=== PATIENT | female | born 1970 | race Caucasian/White ===

== ENCOUNTER 2017-06-05 08:29 | Day surgery (SDC) | payer BC ==
[2017-06-05] MEDS ORDERED: NA CHLORIDE 0.9% 1,000 ML ONE (08:56)
[2017-06-05 09:19] VITALS: BMI 25.8
[2017-06-05] MEDS ORDERED: FLUMAZENIL 0.1 MG/ML (5 mL VIAL) IV ONE (09:42)
[2017-06-05] MEDS ORDERED: NALOXONE 0.4 MG/ML VIAL ONE (09:42)
[2017-06-05] MEDS ORDERED: FENTANYL CITR 100 MCG/2 ML ONE ×2 (09:42→10:53)
[2017-06-05] MEDS ORDERED: MIDAZOLAM HCL 2 MG/2 ML INJ ONE (09:42)
[2017-06-05] MEDS ORDERED: PROMETHAZINE 25 MG TABLET ONE (10:47)
[2017-06-05] MEDS ORDERED: PROMETHAZINE 25 MG/ML VIAL ONE (10:53)
--- NOTE | 2017-06-05 11:31 | RAD REPORT ---
EXAM DESCRIPTION: US - Liver Biopsy Proceduree - 06/05/2017 10:35 am CLINICAL HISTORY: Elevated liver function tests. COMPARISON: None. FINDINGS: Preoperative diagnosis: Elevated liver function test.. Post operative diagnosis: Same. Conscious Sedation: 45 minutes of IV conscious sedation was utilized with fentanyl and midazolam. Fluoroscopy time: None Contrast used: None Estimated blood loss: Minimal Specimens:3 x 18 gauge core biopsy specimens The right upper quadrant was prepped and draped in the usual sterile fashion. 1% lidocaine was infilt rated into the subcutaneous tissues for local anesthesia. Real time ultrasound scanning of the right lobe of the liver demonstrated fatty liver with a suitable sonographic window. Under ultrasound ric nce, using a 18-gauge, 16 cm long, 2 cm throw core biopsy gun, 3 specimens were obtained of this lesi on and sent to pathology for evaluation. There were no complications. IMPRESSION: Successful nonfocal ultrasound-guided liver biopsy. 45 minutes IV conscious sedation was utilized.
[2017-06-05 14:10] VITALS: BP 129/76; TEMP 97.9; O2SAT 97
== END 2017-06-05 14:00 | disposition home or self-care (01) ==
LOC: DS 08:29
PROVIDERS: ATTEND Internal Medicine Gastroenterology
PROC: 0FB13ZX Excision of Right Lobe Liver, Percutaneous Approach, Diagnostic (ICD-10-PCS; principal; 2017-06-05)
DX: K76.0 Fatty (change of) liver, not elsewhere classified (principal); R10.13 Epigastric pain; R93.5 Abnormal findings on diagnostic imaging of other abdominal regions, including retroperitoneum; E11.9 Type 2 diabetes mellitus without complications; R42 Dizziness and giddiness; Z12.31 Encounter for screening mammogram for malignant neoplasm of breast; Z80.0 Family history of malignant neoplasm of digestive organs
CPT/HCPCS: 47000; 76942; 88305; 88307; 88313; J2250; J2310; J2550; J3010; J7030

== ENCOUNTER 2017-12-25 09:42 | Emergency (ER) | payer BC ==
[2017-12-25 10:14] LABS: Absolute Lymphocytes (CBC) 2.9 K/uL (0.7-4.9); Absolute Monocytes 0.8 K/uL (0.1-1.3); Absolute Neutrophil 9.2 K/uL (1.8-8.0); Basophils % 0.4 % (0-1.3); Eosinophils % 0.5 % (0-4.4); Hematocrit 40.8 % (36.0-45.0); Lymphocytes % 22.1 % (15.3-44.8); MCH 30.2 pg (27.0-35.0); MCV 86.6 fL (80-100); Monocytes % 6.3 % (3.3-12.3); RBC Red Blood Cell Count 4.71 M/uL (3.86-4.86)
[2017-12-25] MEDS ORDERED: MORPHINE 4 MG/ML SYR ONE (10:16)
[2017-12-25] MEDS ORDERED: ONDANSETRON 4 MG/2 ML VIAL ONE (10:17)
[2017-12-25] MEDS ORDERED: NA CHLORIDE 0.9% 1,000 ML ONE (10:17)
[2017-12-25 10:32] LABS: Potassium 3.7 mmol/L (3.5-5.1)
[2017-12-25 10:33] LABS: Albumin 4.1 g/dL (3.4-5.0); Bilirubin Direct 0.1 mg/dL (0-0.2); Bilirubin Total 0.3 mg/dL (0.2-1.0); Protein, Total 8.2 g/dL (6.4-8.2)
[2017-12-25 10:48] LABS: Urine Blood NEGATIVE (NEG); Urine Glucose NEGATIVE (NEG); Urine Protein NEGATIVE (NEG); Urine pH 5.5 (5.0-7.0)
--- NOTE | 2017-12-25 11:06 | RAD REPORT ---
EXAM DESCRIPTION: CT - Abdomen Pelvis W Contrast - 12/25/2017 10:46 am CLINICAL HISTORY: Abdominal pain/ right lower quadrant pain COMPARISON: none. TECHNIQUE: Computed axial tomography of the abdomen pelvis was obtained. 100 cc Isovue-300 was admin istered intravenously. Oral contrast was not requested which limits evaluation of bowel. All CT scans are performed using dose optimization technique as appropriate and may include automated exposure control or mA/KV adjustment according to patient size. FINDINGS: Liver has a diminished attenuation consistent with fatty infiltration. Spleen, pancreas, adrenal and kidneys appear unremarkable. There is no evidence of diverticulitis. A small right inguinal hernia contains fat. A neurostimulator device is present within the spinal can al. IMPRESSION: Fatty infiltration liver. Small right inguinal hernia containing fat
--- NOTE | 2017-12-25 11:36 | EDPHYS ---
Physician Documentation [facility] Name: Orquidea Martin Age: 47 yrs Sex: Female : 1970 Arrival Date: 12/25/2017 Time: 09:45 Bed 13 Private MD: Javid Garcia ED Physician Eliud Arnold HPI: 12/25 09:56 This 47 yrs old Female presents to ER via Ambulatory with complaints of Back kb Pain. 09:56 The patient presents with abdominal pain right lower quadrant. Onset: The kb symptoms/episode began/occurred 1 week(s) ago. The symptoms radiate to right back. Associated signs and symptoms: none. The symptoms are described as constant. Modifying factors: The symptoms are alleviated by nothing, the symptoms are aggravated by pressure. Severity of pain: At its worst the pain was moderate in the emergency department the pain is unchanged. The patient has experienced similar episodes in the past, multiple times. The patient has been recently seen by a physician: the patient's primary care provider, with similar presenting complaints, and was sent to the [facility] Emergency Department for further evaluation. Pt reports RLQ pain that started a week ago. Now pain is worse and radiates to right lower back. Historical: - Allergies: 10:05 No Known Allergies; la1 - PMHx: 10:05 Diabetes - NIDDM; Pancreatitis; neuropathy; la1 - PSHx: 10:06 Appendectomy; Hysterectomy; la1 - Immunization history:: Adult Immunizations up to date. - Social history:: Smoking status: Patient/guardian denies using tobacco. - Ebola Screening: : No symptoms or risks identified at this time. ROS: 09:56 Constitutional: Negative for fever, chills, and weight loss, Cardiovascular: Negative kb for chest pain, palpitations, and edema, Respiratory: Negative for shortness of breath, cough, wheezing, and pleuritic chest pain, MS/Extremity: Negative for injury and deformity, Skin: Negative for injury, rash, and discoloration, Neuro: Negative for headache, weakness, numbness, tingling, and seizure. 09:56 Abdomen/GI: Positive for abdominal pain. 09:56 Back: Positive for pain at rest, of the right low back. Exam: 09:56 Constitutional: This is a well developed, well nourished patient who is awake, alert, kb and in no acute distress. Head/Face: Normocephalic, atraumatic. Chest/axilla: Normal chest wall appearance and motion. Nontender with no deformity. No lesions are appreciated. Cardiovascular: Regular rate and rhythm with a normal S1 and S2. No gallops, murmurs, or rubs. Normal PMI, no JVD. No pulse deficits. Respiratory: Lungs have equal breath sounds bilaterally, clear to auscultation and percussion. No rales, rhonchi or wheezes noted. No increased work of breathing, no retractions or nasal flaring. Back: No spinal tenderness. No costovertebral tenderness. Full range of motion. Skin: Warm, dry with normal turgor. Normal color with no rashes, no lesions, and no evidence of cellulitis. MS/ Extremity: Pulses equal, no cyanosis. Neurovascular intact. Full, normal range of motion. Neuro: Awake and alert, GCS 15, oriented to person, place, time, and situation. Cranial nerves II-XII grossly intact. Motor strength 5/5 in all extremities. Sensory grossly intact. Cerebellar exam normal. Normal gait. 09:56 Abdomen/GI: Inspection: abdomen appears normal, Palpation: soft, in all quadrants, moderate abdominal tenderness, in the right upper quadrant. Vital Signs: 09:59 BP 161 / 80; Pulse 93; Resp 17; Temp 99.1; Pulse Ox 97% on R/A; mh5 10:04 BP 158 / 84; Pulse 94; Resp 16; Temp 99.4(O); Pulse Ox 100% on R/A; la1 11:44 BP 146 / 74; Pulse 84; Resp 16; Temp 97.1; Pulse Ox 98% on R/A; la1 MDM: 09:50 Patient medically screened. kb 10:04 Data reviewed: vital signs, nurses notes. Data interpreted: Pulse oximetry: on room air kb is 100 %. Interpretation: normal. 11:32 Counseling: I had a detailed discussion with the patient and/or guardian regarding: the kb historical points, exam findings, and any diagnostic results supporting the discharge/admit diagnosis, lab results, radiology results, the need for outpatient follow up, a family practitioner, to return to the emergency department if symptoms worsen or persist or if there are any questions or concerns that arise at home. 12/25 09:55 Order name: Basic Metabolic Panel; Complete Time: 10:40 kb 12/25 09:55 Order name: CBC with Diff; Complete Time: 10:17 kb 12/25 09:55 Order name: Hepatic Function; Complete Time: 10:40 kb 12/25 09:55 Order name: Lipase; Complete Time: 10:40 kb 12/25 10:25 Order name: Urine Dipstick--Ancillary (enter results) eb 12/25 10:25 Order name: Urine --Ancillary (enter results) eb 12/25 09:55 Order name: IV Saline Lock; Complete Time: 10:07 kb 12/25 09:55 Order name: CT Abd/Pelvis - W/Contrast; Complete Time: 11:09 kb 12/25 10:26 Order name: Urine Dipstick-Ancillary; Complete Time: 10:49 EDMS 12/25 10:26 Order name: Urine --Ancillary; Complete Time: 10:49 EDMS 12/25 11:13 Order name: US Abdomen Limited kb 12/25 09:55 Order name: Labs collected and sent; Complete Time: 10:07 kb 12/25 09:56 Order name: Urine Dipstick-Ancillary (obtain specimen); Complete Time: 10:07 kb Administered Medications: 10:14 Drug: morphine 4 mg Route: IVP; Site: right antecubital; la1 11:45 Follow up: Response: No adverse reaction la1 10:14 Drug: Zofran 4 mg Route: IVP; Site: right antecubital; la1 11:45 Follow up: Response: No adverse reaction la1 10:14 Drug: NS 0.9% 1000 ml Route: IV; Rate: 1000 ml; Site: right antecubital; la1 11:44 Follow up: IV Status: Completed infusion la1 Disposition: 12/25/17 11:35 Discharged to Home. Impression: Generalized abdominal pain. - Condition is Stable. - Discharge Instructions: Abdominal Pain, Adult, [id number]. - Prescriptions for Bentyl 20 mg Oral Tablet - take 1 tablet by ORAL route every 6 hours As needed; 20 tablet. Zofran 4 mg Oral Tablet - take 1 tablet by ORAL route every 6 hours As needed; 20 tablet. - Medication Reconciliation Form, Thank You Letter, Antibiotic Education, Prescription Opioid Use form. - Follow up: Emergency Department; When: As needed; Reason: Worsening of condition. Follow up: Private Physician; When: 2 - 3 days; Reason: Recheck today's complaints, Continuance of care, Re-evaluation by your physician. Signatures: Dispatcher [employer] Akosua Herbert, ANDRA-No SILVERMAN-Eleno Charles RN RN la1 Corrections: (The following items were deleted from the chart) 11:45 11:35 12/25/2017 11:35 Discharged to Home. Impression: Generalized abdominal pain. la1 Condition is Stable. Discharge Instructions: Abdominal Pain, Adult, [id number]. Prescriptions for Bentyl 20 mg Oral Tablet - take 1 tablet by ORAL route every 6 hours As needed; 20 tablet, Zofran 4 mg Oral Tablet - take 1 tablet by ORAL route every 6 hours As needed; 20 tablet. and Forms are Medication Reconciliation Form, Thank You Letter, Antibiotic Education, Prescription Opioid Use. Follow up: Emergency Department; When: As needed; Reason: Worsening of condition. Follow up: Private Physician; When: 2 - 3 days; Reason: Recheck today's complaints, Continuance of care, Re-evaluation by your physician. kb
--- NOTE | 2017-12-25 11:36 | ER ---
Nurse's Notes [facility] Name: Orquidea Martin Age: 47 yrs Sex: Female : 1970 Arrival Date: 12/25/2017 Time: 09:45 Bed 13 Private MD: Javid Garcia Diagnosis: Generalized abdominal pain Presentation: 12/25 09:52 Presenting complaint: Patient states: pain to right lower abd around to right low back iw X 1 week. 09:55 Transition of care: patient was not received from another setting of care. Onset of iw symptoms was December 19, 2017. 09:55 Method Of Arrival: Ambulatory iw 09:55 Acuity: FLAQUITO 3 iw 10:07 Risk Assessment: Do you want to hurt yourself or someone else? Patient reports no la1 desire to harm self or others. Initial Sepsis Screen: Does the patient meet any 2 criteria? No. Patient's initial sepsis screen is negative. Does the patient have a suspected source of infection? No. Patient's initial sepsis screen is negative. Care prior to arrival: None. Historical: - Allergies: 10:05 No Known Allergies; la1 - PMHx: 10:05 Diabetes - NIDDM; Pancreatitis; neuropathy; la1 - PSHx: 10:06 Appendectomy; Hysterectomy; la1 - Immunization history:: Adult Immunizations up to date. - Social history:: Smoking status: Patient/guardian denies using tobacco. - Ebola Screening: : No symptoms or risks identified at this time. Screenin:04 Abuse screen: Denies threats or abuse. Nutritional screening: No deficits noted. la1 Tuberculosis screening: No symptoms or risk factors identified. Fall Risk None identified. Assessment: 10:06 General: Appears uncomfortable, Behavior is cooperative. Pain: Complains of pain in la1 right upper quadrant and right low back. Neuro: Level of Consciousness is awake, alert, obeys commands, Oriented to person, place, time, situation. Cardiovascular: Capillary refill < 3 seconds Patient's skin is warm and dry. Respiratory: Airway is patent Respiratory effort is even, unlabored, Respiratory pattern is regular, symmetrical. GI: Abdomen is round non-distended, Bowel sounds present X 4 quads. Abd is soft X 4 quads Abdomen is tender to palpation in right upper quadrant and right lower quadrant. : No signs and/or symptoms were reported regarding the genitourinary system. Vital Signs: 09:59 BP 161 / 80; Pulse 93; Resp 17; Temp 99.1; Pulse Ox 97% on R/A; mh5 10:04 BP 158 / 84; Pulse 94; Resp 16; Temp 99.4(O); Pulse Ox 100% on R/A; la1 11:44 BP 146 / 74; Pulse 84; Resp 16; Temp 97.1; Pulse Ox 98% on R/A; la1 ED Course: 09:45 Patient arrived in ED. mr 09:46 Javid Garcia MD is Private Physician. mr 09:47 Eleno Flowers, JUNG is Primary Nurse. la1 09:50 Akosua Dotson [facility]-C [facility]. kb 09:50 Eliud Arnold MD is Attending Physician. kb 09:55 Triage completed. iw 10:05 No provider procedures requiring assistance completed. Inserted saline lock: 20 gauge la1 in right antecubital area, using aseptic technique. Blood collected. 10:06 Bed in low position. Call light in reach. Side rails up X 1. la1 10:07 Arm band placed on left wrist. la1 10:09 Urine collected: clean catch specimen, grayson colored. mh5 10:47 CT Abd/Pelvis - W/Contrast In Process Unspecified. EDMS 10:47 CT completed. Patient tolerated procedure well. Patient moved to CT via wheelchair. jg6 Patient moved back from CT. 11:31 US Abdomen Limited In Process Unspecified. EDMS 11:44 IV discontinued, intact, bleeding controlled, No redness/swelling at site. Pressure la1 dressing applied. Administered Medications: 10:14 Drug: morphine 4 mg Route: IVP; Site: right antecubital; la1 11:45 Follow up: Response: No adverse reaction la1 10:14 Drug: Zofran 4 mg Route: IVP; Site: right antecubital; la1 11:45 Follow up: Response: No adverse reaction la1 10:14 Drug: NS 0.9% 1000 ml Route: IV; Rate: 1000 ml; Site: right antecubital; la1 11:44 Follow up: IV Status: Completed infusion la1 Outcome: 11:35 Discharge ordered by . kb 11:44 Discharged to home ambulatory. la1 11:44 Condition: stable 11:44 Discharge instructions given to patient, Instructed on discharge instructions, follow up and referral plans. medication usage, Demonstrated understanding of instructions, follow-up care, medications, Prescriptions given X 2. 11:45 Patient left the ED. laTristin Signatures: Dispatcher [employer] EDMS Akosua Dotson, ANDRA-C [employer] MANAGEMENT ASSOCIATE-Amita Beard Irene, RN RN iw Attema, Lee, RN RN la1 Martinez, Maria [facility] Erma Simeon
[2017-12-25 11:53] VITALS: BP 146/74; TEMP 97.1; O2SAT 98
--- NOTE | 2017-12-25 12:17 | RAD REPORT ---
EXAM DESCRIPTION: US - Abdomen Exam Limited - 12/25/2017 11:31 am CLINICAL HISTORY: Abdominal pain COMPARISON: CT study same date FINDINGS: No gallstones, sludge or other abnormalities within the gallbladder lumen. There is no wal l thickening or pericholecystic fluid. No common duct stone or biliary tree dilatation identified. Fatty infiltration pattern of the liver further detailed on CT abdomen report. IMPRESSION: Normal gallbladder and biliary tree ultrasound.
== END 2017-12-25 11:45 | disposition home or self-care (01) ==
LOC: ER 09:42
DX: R10.84 Generalized abdominal pain (principal)
CPT/HCPCS: 36415; 74177; 76705; 80048; 80076; 81003; 81025; 83690; 85025; J2405; J7030; Q9967

== ENCOUNTER 2018-04-02 19:05 | Emergency (ER) | payer BC ==
--- NOTE | 2018-04-02 21:11 | ER ---
Nurse's Notes [facility] Name: Orquidea Martin Age: 47 yrs Sex: Female : 1970 Arrival Date: 04/02/2018 Time: 19:07 Bed 30 Private MD: Javid Garcia Diagnosis: Low back pain Presentation: 04/02 19:17 Presenting complaint: Patient states: Pain to right lower back and hip that goes down aj right leg. Seen by ER, GI, pain management and PCP "and they can't figure it out.". Transition of care: patient was not received from another setting of care. Onset of symptoms was November 2018. Risk Assessment: Do you want to hurt yourself or someone else? Patient reports no desire to harm self or others. Initial Sepsis Screen: Does the patient meet any 2 criteria? No. Patient's initial sepsis screen is negative. Does the patient have a suspected source of infection? No. Patient's initial sepsis screen is negative. Care prior to arrival: None. 19:17 Method Of Arrival: Ambulatory aj 19:17 Acuity: FLAQUITO 4 aj Triage Assessment: 19:22 General: Appears in no apparent distress. comfortable, Behavior is calm, cooperative, aj appropriate for age. Pain: Complains of pain in right low back, right lower back, right gluteus renetta and right hip. Neuro: Level of Consciousness is awake, alert, obeys commands, Oriented to person, place, time, situation, Appropriate for age. Respiratory: Airway is patent Respiratory effort is even, unlabored, Respiratory pattern is regular, symmetrical. Derm: Skin is intact, is healthy with good turgor, Skin is pink, warm \\T\\ dry. normal. Musculoskeletal: Circulation, motion, and sensation intact. Range of motion: intact in all extremities. KILN STOKER: 19:22 LMP N/A - Hysterectomy aj Historical: - Allergies: 19:22 metformin; aj - Home Meds: 19:22 Dilaudid/Bupivicaine/Morphine pain pump [Active]; Novolog 100 unit/mL Sub-Q soln aj [Active]; losartan 50 mg oral tab 1 tab once daily [Active]; omeprazole 40 mg Oral cpDR 1 cap once daily [Active]; carisoprodol 350 mg Oral tab 1 tab 3 times per day [Active]; citalopram 20 mg tab 1 tab once daily [Active]; Movantik 25 mg oral tab 1 tab once daily [Active]; promethazine 25 mg Oral tab 1 tab 2 times per day [Active]; zolpidem 12.5 mg Oral TbMP 1 tab once daily [Active]; - PMHx: 19:22 Diabetes - NIDDM; neuropathy; Pancreatitis; Chronic pain; Constipation; aj - PSHx: 19:22 Laparostomy x 3; Shoulder X 5; Hysterectomy; aj - Immunization history:: Adult Immunizations up to date. - Social history:: Smoking status: Patient/guardian denies using tobacco. - Ebola Screening: : Patient negative for fever greater than or equal to 101.5 degrees Fahrenheit, and additional compatible Ebola Virus Disease symptoms Patient denies exposure to infectious person Patient denies travel to an Ebola-affected area in the 21 days before illness onset No symptoms or risks identified at this time. Screenin:46 Abuse screen: Denies threats or abuse. Denies injuries from another. Nutritional mg2 screening: No deficits noted. Tuberculosis screening: No symptoms or risk factors identified. Fall Risk None identified. Assessment: 20:45 General: Appears in no apparent distress. comfortable, Behavior is calm, cooperative. mg2 Pain: Complains of pain in right flank Pain radiates to right thigh Pain currently is 8 out of 10 on a pain scale. Quality of pain is described as aching, Pain began gradually. Neuro: Level of Consciousness is awake, alert, obeys commands, Oriented to person, place, time, situation. Cardiovascular: Capillary refill < 3 seconds Patient's skin is warm and dry. Respiratory: Airway is patent Respiratory effort is even, unlabored, Respiratory pattern is regular, symmetrical. GI: No signs and/or symptoms were reported involving the gastrointestinal system. : Urine is clear. : Reports pain in right flank(s), in lower back. EENT: No signs and/or symptoms were reported regarding the EENT system. Derm: Skin is intact, is healthy with good turgor, Skin is pink, warm \\T\\ dry. normal. Musculoskeletal: Circulation, motion, and sensation intact. Capillary refill < 3 seconds, Reports pain in right lower back. 21:15 Reassessment: patient was seen by the provider and no treatment was given in ED. mg2 advised to follow-up with her own private physician. Vital Signs: 19:22 BP 148 / 89; Pulse 107; Resp 16; Temp 97.6; Pulse Ox 99% on R/A; Weight 84.37 kg; aj Height 5 ft. 7 in. (170.18 cm); 20:46 BP 149 / 71; Pulse 100; Resp 18; Pulse Ox 100% on R/A; Pain 8/10; mg2 19:22 Body Mass Index 29.13 (84.37 kg, 170.18 cm) aj ED Course: 19:07 Patient arrived in ED. mr 19:07 Javid Garcia MD is Private Physician. mr 19:19 Triage completed. aj 19:22 Arm band placed on left wrist. Patient placed in waiting room, Patient notified of wait aj time. 20:44 Abdirashid Moreau NP is PHCP. pm1 20:44 Eliud Arnold MD is Attending Physician. pm1 20:44 Phan Pedersen RN is Primary Nurse. mg2 20:47 Patient has correct armband on for positive identification. Door closed. Warm blanket mg2 given. Pillow given. 20:47 No provider procedures requiring assistance completed. mg2 21:16 Patient did not have IV access during this emergency room visit. mg2 Administered Medications: No medications were administered Outcome: 21:10 Discharge ordered by MD. pm1 21:16 Discharged to home ambulatory. mg2 21:16 Condition: stable 21:16 Discharge instructions given to patient, Instructed on discharge instructions, follow up and referral plans. Demonstrated understanding of instructions, follow-up care. 21:16 Patient left the ED. mg2 Signatures: Britt Ross RN RN aj Rivera, Mary mr Abdirashid Moreau, ERICH BAGGING SALVAGER pm1 Phan Pedersen, JUNG FENG mg2
--- NOTE | 2018-04-02 21:11 | EDPHYS ---
Physician Documentation [facility] Name: Orquidea Martin Age: 47 yrs Sex: Female : 1970 Arrival Date: 04/02/2018 Time: 19:07 Bed 30 Private MD: Javid Garcia ED Physician Eliud Arnold HPI: 04/02 20:45 This 47 yrs old Female presents to ER via Ambulatory with complaints of Back pm1 Pain, Abdominal Pain, Leg Pain. 20:45 The patient presents with pain that is acute, with no known mechanism of injury, that pm1 is chronic. 20:45 The symptoms are located in the low back. Onset: The symptoms/episode began/occurred 1 pm1 week(s) ago. The pain radiates to the lateral aspect of right thigh. Associated signs and symptoms: Pertinent negatives: abdominal pain, chest pain, dysuria, fever, nausea, vomiting. The problem was sustained from unknown cause. Modifying factors: The patient symptoms are alleviated by nothing, the patient symptoms are aggravated by movement. Severity of symptoms: in the emergency department the symptoms are unchanged. The patient has not experienced similar symptoms in the past. The patient has been recently seen by a physician: Patient with pain pump with Dilaudid and morphine. Patient presented to PCP, GI, and pain management with same complaints. Patient was diagnosed with muscle spasm by pain management and given skelaxin. 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/A - Hysterectomy aj Historical: - Allergies: 19:22 metformin; aj - Home Meds: 19:22 Dilaudid/Bupivicaine/Morphine pain pump [Active]; Novolog 100 unit/mL Sub-Q soln aj [Active]; losartan 50 mg oral tab 1 tab once daily [Active]; omeprazole 40 mg Oral cpDR 1 cap once daily [Active]; carisoprodol 350 mg Oral tab 1 tab 3 times per day [Active]; citalopram 20 mg tab 1 tab once daily [Active]; Movantik 25 mg oral tab 1 tab once daily [Active]; promethazine 25 mg Oral tab 1 tab 2 times per day [Active]; zolpidem 12.5 mg Oral TbMP 1 tab once daily [Active]; - PMHx: 19:22 Diabetes - NIDDM; neuropathy; Pancreatitis; Chronic pain; Constipation; aj - PSHx: 19:22 Laparostomy x 3; Shoulder X 5; Hysterectomy; aj - Immunization history:: Adult Immunizations up to date. - Social history:: Smoking status: Patient/guardian denies using tobacco. - Ebola Screening: : Patient negative for fever greater than or equal to 101.5 degrees Fahrenheit, and additional compatible Ebola Virus Disease symptoms Patient denies exposure to infectious person Patient denies travel to an Ebola-affected area in the 21 days before illness onset No symptoms or risks identified at this time. ROS: 20:45 Constitutional: Negative for fever, chills, and weight loss, Eyes: Negative for injury, pm1 pain, redness, and discharge, ENT: Negative for injury, pain, and discharge, Neck: Negative for injury, pain, and swelling, Cardiovascular: Negative for chest pain, palpitations, and edema, Respiratory: Negative for shortness of breath, cough, wheezing, and pleuritic chest pain, Abdomen/GI: Negative for abdominal pain, nausea, vomiting, diarrhea, and constipation. 20:45 : Negative for injury, bleeding, discharge, and swelling, MS/Extremity: Negative for injury and deformity, Skin: Negative for injury, rash, and discoloration, Neuro: Negative for headache, weakness, numbness, tingling, and seizure. 20:45 Back: Positive for of the right low back, Negative for decreased range of motion. Exam: 20:45 Constitutional: This is a well developed, well nourished patient who is awake, alert, pm1 and in no acute distress. Head/Face: Normocephalic, atraumatic. Eyes: Pupils equal round and reactive to light, extra-ocular motions intact. Lids and lashes normal. Conjunctiva and sclera are non-icteric and not injected. Cornea within normal limits. Periorbital areas with no swelling, redness, or edema. ENT: Nares patent. No nasal discharge, no septal abnormalities noted. Tympanic membranes are normal and external auditory canals are clear. Oropharynx with no redness, swelling, or masses, exudates, or evidence of obstruction, uvula midline. Mucous membranes moist. Neck: Trachea midline, no thyromegaly or masses palpated, and no cervical lymphadenopathy. Supple, full range of motion without nuchal rigidity, or vertebral point tenderness. No Meningismus. Chest/axilla: Normal chest wall appearance and motion. Nontender with no deformity. No lesions are appreciated. Cardiovascular: Regular rate and rhythm with a normal S1 and S2. No gallops, murmurs, or rubs. Normal PMI, no JVD. No pulse deficits. Respiratory: Lungs have equal breath sounds bilaterally, clear to auscultation and percussion. No rales, rhonchi or wheezes noted. No increased work of breathing, no retractions or nasal flaring. Abdomen/GI: Soft, non-tender, with normal bowel sounds. No distension or tympany. No guarding or rebound. No evidence of tenderness throughout. 20:45 Skin: Warm, dry with normal turgor. Normal color with no rashes, no lesions, and no evidence of cellulitis. MS/ Extremity: Pulses equal, no cyanosis. Neurovascular intact. Full, normal range of motion. 20:45 Back: pain, of the right low back, normal spinal alignment noted, vertebral tenderness, is not appreciated, muscle spasm, is appreciated in the right low back. 20:45 Neuro: Orientation: is normal, Motor: moves all fours, Sensation: is normal, no obvious gross deficits. Vital Signs: 19:22 BP 148 / 89; Pulse 107; Resp 16; Temp 97.6; Pulse Ox 99% on R/A; Weight 84.37 kg; aj Height 5 ft. 7 in. (170.18 cm); 20:46 BP 149 / 71; Pulse 100; Resp 18; Pulse Ox 100% on R/A; Pain 8/10; mg2 19:22 Body Mass Index 29.13 (84.37 kg, 170.18 cm) aj MDM: 20:45 Patient medically screened. pm1 21:09 Data reviewed: vital signs. Data interpreted: Pulse oximetry: on room air is 100 %. pm1 Interpretation: normal. Counseling: I had a detailed discussion with the patient and/or guardian regarding: the historical points, exam findings, and any diagnostic results supporting the discharge/admit diagnosis. 04/02 20:42 Order name: Urine Dipstick--Ancillary (enter results) mw2 04/02 20:42 Order name: Urine --Ancillary (enter results) mw2 Administered Medications: No medications were administered Disposition: 04/03 07:50 Co-signature as Attending Physician, Eliud Arnold MD I agree with the assessment and toña plan of care. Disposition: 04/02/18 21:10 Discharged to Home. Impression: Low back pain. - Condition is Stable. - Discharge Instructions: Back Pain, Adult, Chronic Back Pain. - Medication Reconciliation Form, Thank You Letter, Antibiotic Education, Prescription Opioid Use form. - Follow up: Emergency Department; When: As needed; Reason: Worsening of condition. Follow up: Private Physician; When: 2 - 3 days; Reason: Recheck today's complaints, Continuance of care, Re-evaluation by your physician. - Problem is new. - Symptoms have improved. Signatures: Dispatcher [employer] EDBritt Jolley RN RN Eliud Nesbitt MD MD cha Marinas, Patrick, FOREIGN CLERK FOREIGN CLERK pm1 Phan Pedersen RN RN mg2 Corrections: (The following items were deleted from the chart) 04/02 21:16 21:10 04/02/2018 21:10 Discharged to Home. Impression: Low back pain. Condition is mg2 Stable. Forms are Medication Reconciliation Form, Thank You Letter, Antibiotic Education, Prescription Opioid Use. Follow up: Emergency Department; When: As needed; Reason: Worsening of condition. Follow up: Private Physician; When: 2 - 3 days; Reason: Recheck today's complaints, Continuance of care, Re-evaluation by your physician. Problem is new. Symptoms have improved. pm1
[2018-04-02 21:42] LABS: Urine Blood NEGATIVE (NEG); Urine Glucose TRACE (NEG); Urine Protein NEGATIVE (NEG); Urine pH 5.5 (5.0-7.0)
[2018-04-02 23:08] VITALS: TEMP 97.6
[2018-04-02 23:10] VITALS: BP 149/71; O2SAT 100
== END 2018-04-02 21:16 | disposition home or self-care (01) ==
LOC: ER 19:05
DX: M54.5 Low back pain (principal); E11.9 Type 2 diabetes mellitus without complications; Z88.8 Allergy status to other drugs, medicaments and biological substances
CPT/HCPCS: 81003; 81025; 99281

== ENCOUNTER 2018-11-20 11:34 | Inpatient (IN) | payer BC ==
--- NOTE | 2018-11-20 12:46 | ER ---
Nurse's Notes [facility] Name: Orquidea Martin Age: 48 yrs Sex: Female : 1970 Arrival Date: 11/20/2018 Time: 11:38 Bed 19 Private MD: Boo Orellana E Diagnosis: Gangrene, not elsewhere classified Presentation: 11/20 11:55 Presenting complaint: Patient states: Infection in R small toe, states, " My doctor ph says it needs to be removed and I need some IV antibiotics." Reports low grade temp and nausea, denies V/D. Transition of care: patient was not received from another setting of care. Onset of symptoms was November 20, 2018. Risk Assessment: Do you want to hurt yourself or someone else? Patient reports no desire to harm self or others. Initial Sepsis Screen: Does the patient meet any 2 criteria? No. Patient's initial sepsis screen is negative. Does the patient have a suspected source of infection? Yes: Skin breakdown/wound. Care prior to arrival: None. 11:55 Method Of Arrival: Ambulatory ph 11:55 Acuity: FLAQUITO 3 ph Historical: - Allergies: 12:05 metformin; ph 12:05 morphine (nausea); ph - Home Meds: 12:05 Novolog 100 unit/mL Sub-Q soln [Active]; omeprazole 40 mg Oral cpDR 1 cap once daily ph [Active]; citalopram 40 mg oral tab 1 tab once daily [Active]; Dilaudid/Bupivicaine/Morphine pain pump [Active]; promethazine 25 mg Oral tab 1 tab 2 times per day [Active]; montelukast 10 mg oral tab 1 tab once daily [Active]; atorvastatin 40 mg oral tab 1 tab once daily [Active]; olmesartan-hydrochlorothiazide oral oral 1 tab once daily [Active]; cetirizine 10 mg oral tab 1 tab once daily [Active]; zolpidem 12.5 mg Oral TbMP 1 tab once daily [Active]; mupirocin 2 % topical oint [Active]; triamcinolone acetonide 0.1 % Topical crea [Active]; ketoconazole 2 % Topical crea [Active]; vancomycin 250 mg oral cap [Active]; - PMHx: 12:05 Chronic pain; constipation; Diabetes - NIDDM; neuropathy; Pancreatitis; ph - PSHx: 12:05 Laparostomy x 3; Shoulder X 5; Hysterectomy; ph - Immunization history:: Adult Immunizations unknown. - Social history:: Smoking status: Patient/guardian denies using tobacco. - Ebola Screening: : No symptoms or risks identified at this time. Screenin:12 Abuse screen: Denies threats or abuse. Denies injuries from another. Nutritional ph screening: No deficits noted. Tuberculosis screening: No symptoms or risk factors identified. Fall Risk None identified. Assessment: 12:30 General: Appears in no apparent distress. comfortable, well groomed, Behavior is calm, ph cooperative, appropriate for age. Pain: Denies pain. Neuro: Level of Consciousness is awake, alert, obeys commands, Oriented to person, place, time, situation. Cardiovascular: Capillary refill < 3 seconds in bilateral fingers Patient's skin is warm and dry. Respiratory: Airway is patent Respiratory effort is even, unlabored, Respiratory pattern is regular, symmetrical. GI: No signs and/or symptoms were reported involving the gastrointestinal system. Patient currently denies nausea, vomiting. Derm: Skin is healthy with good turgor, Skin is pink, warm \\T\\ dry. Derm: Wound noted ball of right foot and right fifth toe Wound is swollen w/ redness and areas of blackened tissue noted. Musculoskeletal: Circulation, motion, and sensation intact. Range of motion: intact in all extremities, Swelling present in right fifth toe. 13:30 Reassessment: Patient appears in no apparent distress at this time. Patient and/or ph family updated on plan of care and expected duration. Pain level reassessed. Patient is alert, oriented x 3, equal unlabored respirations, skin warm/dry/pink. 15:00 Reassessment: Patient appears in no apparent distress at this time. Patient and/or ph family updated on plan of care and expected duration. Pain level reassessed. Patient is alert, oriented x 3, equal unlabored respirations, skin warm/dry/pink. Vital Signs: 11:57 BP 130 / 62; Pulse 90; Resp 18; Temp 99.2; Pulse Ox 95% on R/A; Weight 86.18 kg; Height ph 5 ft. 7 in. (170.18 cm); 13:24 BP 111 / 61; Pulse 84; Resp 18; Pulse Ox 95% on R/A; ph 14:30 BP 118 / 64; Pulse 87; Resp 18; Temp 98.0; Pulse Ox 95% on R/A; ph 11:57 Body Mass Index 29.76 (86.18 kg, 170.18 cm) ph ED Course: 11:38 Patient arrived in ED. as 11:39 Boo Orellana DPM is Private Physician. as 11:46 Levi Pagan MD is Attending Physician. gs 11:50 Stacy Ashraf RN is Primary Nurse. ph 11:57 Triage completed. ph 12:10 Arm band placed on. ph 12:12 Patient has correct armband on for positive identification. Placed in gown. Bed in low ph position. Call light in reach. Pulse ox on. NIBP on. 12:30 Inserted saline lock: 22 gauge in left forearm, using aseptic technique. Blood ph collected. Patient admitted, IV remains in place. 12:42 EKG done, by floor care technician. reviewed by Levi Pagan MD. at1 12:43 Rusty Gallardo MD is Hospitalizing Provider. gs 13:24 No provider procedures requiring assistance completed. ph Administered Medications: 13:02 Drug: Zofran 4 mg Route: IVP; Site: left forearm; ph 13:30 Follow up: Response: No adverse reaction; Nausea is decreased ph 13:07 Drug: Zosyn 3.375 grams Route: IVPB; Infused Over: 60 mins; Site: left forearm; ph 14:10 Follow up: Response: No adverse reaction; IV Status: Completed infusion ph Outcome: 12:44 Decision to Hospitalize by Provider. gs 15:15 Admitted to Med/surg accompanied by tech, via wheelchair, with chart, Report called to aaClaudine Dubois RN 15:15 Condition: stable 15:15 Instructed on the need for admit, Demonstrated understanding of instructions. 15:27 Patient left the ED. [email or web address] Signatures: Kesha Lugo Audri RN RN Britt Herrera, cloth checker EKG Tat1 Stacy Ashraf RN RN ph Levi Pagan MD MD gs
--- NOTE | 2018-11-20 12:46 | EDPHYS ---
Physician Documentation [facility] Name: Orquidea Martin Age: 48 yrs Sex: Female : 1970 Arrival Date: 11/20/2018 Time: 11:38 Bed 19 Private MD: Boo Orellana E ED Physician Levi Pagan HPI: 11/20 12:40 This 48 yrs old Female presents to ER via Ambulatory with complaints of Toe gs Gangrene. 12:40 The complaints affect the right foot, right fifth toe and Right fifth toenail. Onset: gs The symptoms/episode began/occurred 1 week(s) ago, and became worse. Associated signs and symptoms: Pertinent negatives: fever. Severity of symptoms: At their worst the symptoms were severe, in the emergency department the symptoms are unchanged. The patient has not experienced similar symptoms in the past. Historical: - Allergies: 12:05 metformin; ph 12:05 morphine (nausea); ph - Home Meds: 12:05 Novolog 100 unit/mL Sub-Q soln [Active]; omeprazole 40 mg Oral cpDR 1 cap once daily ph [Active]; citalopram 40 mg oral tab 1 tab once daily [Active]; Dilaudid/Bupivicaine/Morphine pain pump [Active]; promethazine 25 mg Oral tab 1 tab 2 times per day [Active]; montelukast 10 mg oral tab 1 tab once daily [Active]; atorvastatin 40 mg oral tab 1 tab once daily [Active]; olmesartan-hydrochlorothiazide oral oral 1 tab once daily [Active]; cetirizine 10 mg oral tab 1 tab once daily [Active]; zolpidem 12.5 mg Oral TbMP 1 tab once daily [Active]; mupirocin 2 % topical oint [Active]; triamcinolone acetonide 0.1 % Topical crea [Active]; ketoconazole 2 % Topical crea [Active]; vancomycin 250 mg oral cap [Active]; - PMHx: 12:05 Chronic pain; constipation; Diabetes - NIDDM; neuropathy; Pancreatitis; ph - PSHx: 12:05 Laparostomy x 3; Shoulder X 5; Hysterectomy; ph - Immunization history:: Adult Immunizations unknown. - Social history:: Smoking status: Patient/guardian denies using tobacco. - Ebola Screening: : No symptoms or risks identified at this time. ROS: 12:40 All other systems are negative. gs Exam: 12:40 Head/Face: Normocephalic, atraumatic. Eyes: Pupils equal round and reactive to light, gs extra-ocular motions intact. Lids and lashes normal. Conjunctiva and sclera are non-icteric and not injected. Cornea within normal limits. Periorbital areas with no swelling, redness, or edema. ENT: Nares patent. No nasal discharge, no septal abnormalities noted. Tympanic membranes are normal and external auditory canals are clear. Oropharynx with no redness, swelling, or masses, exudates, or evidence of obstruction, uvula midline. Mucous membranes moist. Neck: Trachea midline, no thyromegaly or masses palpated, and no cervical lymphadenopathy. Supple, full range of motion without nuchal rigidity, or vertebral point tenderness. No Meningismus. Chest/axilla: Normal chest wall appearance and motion. Nontender with no deformity. No lesions are appreciated. Cardiovascular: Regular rate and rhythm with a normal S1 and S2. No gallops, murmurs, or rubs. Normal PMI, no JVD. No pulse deficits. Respiratory: Lungs have equal breath sounds bilaterally, clear to auscultation and percussion. No rales, rhonchi or wheezes noted. No increased work of breathing, no retractions or nasal flaring. Abdomen/GI: Soft, non-tender, with normal bowel sounds. No distension or tympany. No guarding or rebound. No evidence of tenderness throughout. Back: No spinal tenderness. No costovertebral tenderness. Full range of motion. Neuro: Awake and alert, GCS 15, oriented to person, place, time, and situation. Cranial nerves II-XII grossly intact. Motor strength 5/5 in all extremities. Sensory grossly intact. Cerebellar exam normal. Normal gait. 12:40 Constitutional: The patient appears alert, awake. 12:40 Musculoskeletal/extremity: Extremities: noted in the right fifth toe and Right fifth toenail: wet gangrene, Pulses: noted to be 3+ in the right posterior tibial artery. 12:40 Skin: cellulitis, that is moderate, on the right fifth toe. Vital Signs: 11:57 BP 130 / 62; Pulse 90; Resp 18; Temp 99.2; Pulse Ox 95% on R/A; Weight 86.18 kg; Height ph 5 ft. 7 in. (170.18 cm); 13:24 BP 111 / 61; Pulse 84; Resp 18; Pulse Ox 95% on R/A; ph 14:30 BP 118 / 64; Pulse 87; Resp 18; Temp 98.0; Pulse Ox 95% on R/A; ph 11:57 Body Mass Index 29.76 (86.18 kg, 170.18 cm) ph MDM: 12:26 Patient medically screened. 12:40 Differential diagnosis: cellulitis, WET GANGRENE. Data reviewed: vital signs, nurses gs notes, lab test result(s). Counseling: I had a detailed discussion with the patient and/or guardian regarding: the historical points, exam findings, and any diagnostic results supporting the discharge/admit diagnosis. Response to treatment: There is no appreciated change of the patient's symptoms at this time, and as a result, I will admit patient. Physician consultation: Boo Orellana [facility] would like admission per Dr. Rusty Gallardo MD. 11/20 12:27 Order name: Blood Culture* 11/20 12:27 Order name: CBC with Diff 11/20 12:27 Order name: Basic Metabolic Panel 11/20 12:27 Order name: PT-INR 11/20 12:27 Order name: EKG; Complete Time: 12:28 11/20 12:27 Order name: EKG - Nurse/Tech; Complete Time: 15:00 Administered Medications: 13:02 Drug: Zofran 4 mg Route: IVP; Site: left forearm; ph 13:30 Follow up: Response: No adverse reaction; Nausea is decreased ph 13:07 Drug: Zosyn 3.375 grams Route: IVPB; Infused Over: 60 mins; Site: left forearm; ph 14:10 Follow up: Response: No adverse reaction; IV Status: Completed infusion ph Disposition: 11/20/18 12:44 Hospitalization ordered by Rusty Gallardo for Inpatient Admission. Preliminary diagnosis is Gangrene, not elsewhere classified. - Bed requested for Telemetry/MedSurg (Inpatient). - Status is Inpatient Admission. aa5 - Condition is Stable. - Problem is new. - Symptoms have improved. UTI on Admission? No Signatures: Dispatcher [employer] EDEle Wiggins RN RN dw Angelique Guthrie, RN RN aa5 Stacy Ashraf RN RN PaganLevi MD MD Corrections: (The following items were deleted from the chart) 14:21 12:44 Hospitalization Ordered by Rusty Gallardo MD for Inpatient Admission. Preliminary dw diagnosis is Gangrene, not elsewhere classified. Bed requested for Telemetry/MedSurg (Inpatient). Status is Inpatient Admission. Condition is Stable. Problem is new. Symptoms have improved. UTI on Admission? No. gs 15:27 14:21 11/20/2018 12:44 Hospitalization Ordered by Rusty Gallardo MD for Inpatient aa5 Admission. Preliminary diagnosis is Gangrene, not elsewhere classified. Bed requested for Telemetry/MedSurg (Inpatient). Status is Inpatient Admission. Condition is Stable. Problem is new. Symptoms have improved. UTI on Admission? No. dw
[2018-11-20] MEDS ORDERED: PIPER/TAZO/NS 3.375gm 3.375 GM/100 ML BAG ONE (12:55)
[2018-11-20] MEDS ORDERED: ONDANSETRON 4 MG/2 ML VIAL ONE (12:55)
[2018-11-20 13:00] LABS: Absolute Lymphocytes (CBC) 1.7 K/uL (0.7-4.9); Basophils % 0.6 % (0-1.3); Hematocrit 35.3 % (36.0-45.0); Lymphocytes % 28.6 % (15.3-44.8)
[2018-11-20 13:01] LABS: Protime INR 1.11
[2018-11-20 13:05] LABS: Potassium 3.4 mmol/L (3.5-5.1)
[2018-11-20] MEDS ORDERED: ONDANSETRON 4 MG/2 ML VIAL IV PRN (15:39)
[2018-11-20 15:59] VITALS: BMI 29.7
[2018-11-20] MEDS ORDERED: MUPIROCIN 2% OINT 22GM TUBE TOP SCH (17:00)
--- NOTE | 2018-11-20 17:25 | P.HP ---
Patient History Date of Service: 11/20/18 Reason for admission: Toe ulceration History of Present Illness: This is a 48-year-old female with history of hypertension, diabetes, peripheral neuropathy, depression who presented to the emergency room after being referred to the ER from Dr. Orellana's office. Per patient, she notices left foot blister about a month ago, she was following up with Dr. orellana. It seemed to be doing well until recently when she saw Dr. ramey in his office. It was noted that the alteration had gotten worse and there was a new ulceration that had developed between 3rd and 4th toe. She was then told to go to the emergency room from his office. She presented to the ER this morning. She denied any fevers, chills, vomiting, chest pain, shortness of breath, headache, dizziness, lightheadedness, GI or complaints. She did endorse nausea along with the ulceration. Pain was well controlled. In the ER, blood pressure was 130/62, heart rate of 90, respirations of 18, afebrile at 99.2, satting 95% on room air and a BMI of 29.7. Labs were remarkable for blood sugars of 366. She received Zofran and Zosyn in the ER. The time of my exam, she is alert oriented x3, in no acute distress and hemodynamically stable. Allergies morphine Allergy (Verified 11/20/18 16:03) Nausea/Vomiting metformin Adverse Reaction (Verified 06/05/17 09:25) Nausea/Vomiting Metformin HCl Allergy (Uncoded 12/07/14 00:14) Unknown Home medications list reviewed: Yes Home Medications: Omeprazole Magnesium [Prilosec Otc] 40 mg PO DAILY 06/05/17 Promethazine Suppos [Phenergan -Suppos*] 25 mg PO Q6HP PRN 06/05/17 Atorvastatin Calcium 40 mg PO BEDTIME 11/20/18 Cetirizine HCl [Zyrtec] 10 mg PO DAILY 11/20/18 Citalopram Hydrobromide [Citalopram HBr] 40 mg PO DAILY 11/20/18 Dilaudid Pain Pump 11/20/18 Fluticasone [Flonase 50MCG Nasal [place]*] 1 spray IH DAILY 11/20/18 Insulin 70/30 NPH/Reg Human [Novolin 70/30*] 55 unit SQ BID 11/20/18 Ketoconazole 0.5 tube TOP TID 11/20/18 Montelukast Sodium [Singulair] 1 tab PO DAILY 11/20/18 Mupirocin Oint [Bactroban 2% Ointment*] 1 bam TOP PRN 11/20/18 Olmesartan/Hydrochlorothiazide [Olmesartan-Hctz 40-25 mg Tab] 1 tab PO DAILY Triamcinolone 0.1% Crm [Kenalog 0.1% Cream*] 1 bam TOP PRN 11/20/18 Vancomycin HCl 250 mg TOP TID 11/20/18 Zolpidem Tartrate [Ambien] 10 mg PO BEDTIME 11/20/18 - Past Medical/Surgical History Diabetic: Yes -: Neuropathy -: Ectopic -: Abdominal adhesions -: UTI -: ENDOMETRIOSIS -: pancreatitis -: IDDM -: UTI -: ectopic -: Lasix leelee eyes -: Left shoulder x5 -: Bilateral tubal ligation -: Hysterectomy -: MULTIPLE LAPAROSCOPIC PROCEDURES -: Appendectomy - Social History Smoking Status: Never smoker Alcohol use: No CD- Drugs: No Caffeine use: No Place of Residence: Home Review of Systems 10-point ROS is otherwise unremarkable Physical Examination - Vital Signs Temperature: 99.2 F Blood Pressure: 111/61 Pulse: 84 Respirations: 18 - Physical Exam General: Alert, In no apparent distress, Oriented x3 HEENT: Atraumatic, PERRLA, Mucous membr. moist/pink, EOMI, Sclerae nonicteric Neck: Supple, 2+ carotid pulse no bruit, No LAD, Without JVD or thyroid abnormality Respiratory: Clear to auscultation bilaterally, Normal air movement Cardiovascular: Regular rate/rhythm, Normal S1 S2 Gastrointestinal: Normal bowel sounds, No tenderness Integumentary: No rashes, Diabetic ulcer (Lateral side of 5th toe and in between toes 3 and 4. ulceration noted) Neurological: Normal gait, Normal speech, Normal strength at 5/5 x4 extr, Normal tone, Normal affect Lymphatics: No axilla or inguinal lymphadenopathy - Studies Laboratory Data (last 24 hrs) 11/20/18 12:30: PT 13.1 H, INR 1.11 11/20/18 12:30: Sodium 135 L, Potassium 3.4 L, BUN 18, Creatinine 0.88, Glucose 366 H 11/20/18 12:30: WBC 6.1, Hgb 12.5, Hct 35.3 L, Plt Count 237 Assessment and Plan - Problems (Diagnosis) (1) Diabetic foot ulcer Current Visit: Yes Status: Acute Plan: -Dr. orellana consulted, awaiting recommendations. Patient will be pending OR tomorrow for amputation of the toe. -will continue IV Zosyn in the meanwhile -pain control -Zofran for nausea -continue IV fluids -NPO after midnight -strict blood sugar control Qualifiers: Diabetic foot ulcer location: toe Diabetes mellitus type: type 2 Laterality: left Non-pressure ulcer stage: with necrosis of muscle Qualified Code(s): E11.621 - Type 2 diabetes mellitus with foot ulcer; L97.523 - Non-pressure chronic ulcer of other part of left foot with necrosis of muscle (2) Hypertension Current Visit: No Status: Chronic Plan: Stable, restart home medication Qualifiers: Hypertension type: essential hypertension Qualified Code(s): I10 - Essential (primary) hypertension (3) Peripheral neuropathy Current Visit: Yes Status: Chronic Qualifiers: Peripheral neuropathy type: polyneuropathy associated with underlying disease Qualified Code(s): G63 - Polyneuropathy in diseases classified elsewhere (4) Depression Current Visit: No Status: Chronic Qualifiers: Depression Type: unspecified Qualified Code(s): F32.9 - Major depressive disorder, single episode, unspecified (5) Chronic pain Current Visit: No Status: Chronic Qualifiers: Chronic pain type: chronic pain syndrome Qualified Code(s): G89.4 - Chronic pain syndrome (6) Diabetes mellitus with hyperglycemia Onset Date: 12/07/14 Current Visit: No Status: Chronic Plan: Not well controlled. -Will restart home insulin -Accu-Cheks ACHS -mild sliding scale insulin -monitor blood sugars and adjust as needed. Qualifiers: Diabetes mellitus type: type 2 Diabetes mellitus manager intermediate insulin use: with manager intermediate use Qualified Code(s): E11.65 - Type 2 diabetes mellitus with hyperglycemia; Z79.4 - intermediate accountant (current) use of insulin - Plan DVT prophylaxis: Hold for OR tomorrow GI prophylaxis: None Diet: Diabetic, NPO after midnight Disposition: Admit to floor with tele. Anticipate amputation of the toe with Dr. orellana tomorrow. - Advance Directives Does patient have a Living Will: No Does patient have a Durable POA for Healthcare: No Time Spent Managing Pts Care (In Minutes): 55
[2018-11-20] MEDS ORDERED: POTASSIUM CL SA 10 MEQ TAB PO ONE (18:00)
[2018-11-20] MEDS: INSULIN -REGULAR HUMAN 50 UNIT/0.5 ML ML SQ SCH ×2 (18:07→23:31)
[2018-11-20] MEDS: NA CHLORIDE 0.9% 1,000 ML IV SCH (18:07)
--- NOTE | 2018-11-20 18:15 | RAD REPORT ---
EXAM DESCRIPTION: US - Lower Extremity Arterial Bilat - 11/20/2018 5:59 pm CLINICAL HISTORY: Right 5th toe gangrene COMPARISON: No comparisonsLower Ext Angio dated 09/25/2018 TECHNIQUE: Bilateral lower extremity arterial Doppler examination was performed with waveform tracin g and ankle brachial pressure measurements. FINDINGS: Symmetric brachial pressure measurements are noted. Triphasic and biphasic waveforms are seen throughout both lower extremity arterial systems to the lev el of the posterior tibial arteries. Right ankle brachial index measures 1.0, normal. Left ankle brachial index measures 1.1, normal. Digital pressures are significantly reduced bilaterally, greater on the left. IMPRESSION: Significant distal disease is suspected in the infrapopliteal vessels, with significant bilateral reduced toe indices, greater on left.
--- NOTE | 2018-11-20 18:16 | RAD REPORT ---
EXAM DESCRIPTION: RAD - Foot Right 3 View - 11/20/2018 6:02 pm CLINICAL HISTORY: Right 5th toe gangrene COMPARISON: <Comparisons> FINDINGS: Soft tissue swelling is seen affecting the fifth toe. No soft tissue gas. There is subtle demineralization of the distal phalanx of the fifth toe suspicious for early osteomyelitis. This can be confirmed with MR imaging of the foot if clinically indicated.
[2018-11-20 18:43] LABS: Urine Appearance CLEAR; Urine Bilirubin NEGATIVE (NEG); Urine Blood NEGATIVE (NEG); Urine Color YELLOW; Urine Glucose 3+ (NEG); Urine Microscopic Reflex ORDER UMIC; Urine Protein NEGATIVE (NEG); Urine Specific Gravity 1.025 (1.005-1.030); Urine Urobilinogen 0.2 mg/dL (0.2-1.0)
[2018-11-20 18:51] LABS: Urine Bacteria <20 /HPF (<20); Urine Culture Reflex Order REFLEXED; Urine Mucus 1+ /HPF (NONE SEEN); Urine RBC <5 /HPF (NONE SEEN)
[2018-11-20] MEDS ORDERED: ATORVASTATIN 40 MG TAB PO SCH (21:00)
[2018-11-20] MEDS ORDERED: ZOLPIDEM TARTRATE 10 MG TABLET PO SCH (21:00)
[2018-11-20] MEDS: KETOCONAZOLE CREAM 15 GM TUBE TOP SCH (21:00)
[2018-11-20] MEDS: INSULIN 70/30 100 UNITS/ML SQ SCH (21:00)
[2018-11-21] MEDS: NA CHLORIDE 0.9% 1,000 ML IV SCH (04:57)
[2018-11-21 06:49] LABS: Absolute Lymphocytes (CBC) 1.4 K/uL (0.7-4.9); Basophils % 0.4 % (0-1.3); Hematocrit 33.4 % (36.0-45.0); Lymphocytes % 17.4 % (15.3-44.8); MPV 7.9 fL (7.6-11.3); RBC Red Blood Cell Count 3.93 M/uL (3.86-4.86)
[2018-11-21 06:59] LABS: Albumin 3.3 g/dL (3.4-5.0); Bilirubin Total 0.3 mg/dL (0.2-1.0); Potassium 4.1 mmol/L (3.5-5.1); Protein, Total 7.1 g/dL (6.4-8.2)
[2018-11-21] MEDS ORDERED: PANTOPRAZOLE 40MG TABLET PO SCH (07:30)
--- NOTE | 2018-11-21 07:57 | P.CNS ---
Date of Consult: 11/21/18 Reason for Consult: gangrene right fifth toe Chief Complaint: Toe ulceration History of Present Illness: Patient states that she developed redness 11/17/18 with rapid progression to discoloration. Patient was seen in Dr. Orellana's office 11/19/18 and referred to ER for immediate admission for iv antibiotics and possible amputation. Patient presented to ER 11/20/18 and was admitted Allergies morphine Allergy (Verified 11/20/18 16:03) Nausea/Vomiting metformin Adverse Reaction (Verified 06/05/17 09:25) Nausea/Vomiting Metformin HCl Allergy (Uncoded 12/07/14 00:14) Unknown Home Medications: Omeprazole Magnesium [Prilosec Otc] 40 mg PO DAILY 06/05/17 Promethazine Suppos [Phenergan -Suppos*] 25 mg PO Q6HP PRN 06/05/17 Atorvastatin Calcium 40 mg PO BEDTIME 11/20/18 Cetirizine HCl [Zyrtec] 10 mg PO DAILY 11/20/18 Citalopram Hydrobromide [Citalopram HBr] 40 mg PO DAILY 11/20/18 Dilaudid Pain Pump 11/20/18 Fluticasone [Flonase 50MCG Nasal [place]*] 1 spray IH DAILY 11/20/18 Insulin 70/30 NPH/Reg Human [Novolin 70/30*] 55 unit SQ BID 11/20/18 Ketoconazole 0.5 tube TOP TID 11/20/18 Montelukast Sodium [Singulair] 1 tab PO DAILY 11/20/18 Mupirocin Oint [Bactroban 2% Ointment*] 1 bam TOP PRN 11/20/18 Olmesartan/Hydrochlorothiazide [Olmesartan-Hctz 40-25 mg Tab] 1 tab PO DAILY Triamcinolone 0.1% Crm [Kenalog 0.1% Cream*] 1 bam TOP PRN 11/20/18 Vancomycin HCl 250 mg TOP TID 11/20/18 Zolpidem Tartrate [Ambien] 10 mg PO BEDTIME 11/20/18 - Past Medical/Surgical History Diabetic: Yes -: Neuropathy -: Ectopic -: Abdominal adhesions -: UTI -: ENDOMETRIOSIS -: pancreatitis -: IDDM -: UTI -: ectopic -: Lasix leelee eyes -: Left shoulder x5 -: Bilateral tubal ligation -: Hysterectomy -: MULTIPLE LAPAROSCOPIC PROCEDURES -: Appendectomy - Social History Smoking Status: Former smoker Alcohol use: No CD- Drugs: No Caffeine use: No Place of Residence: Home Review of Systems 10-point ROS is otherwise unremarkable Physical Examination Temp Pulse Resp BP Pulse Ox 97.8 F 91 H 20 119/60 94 11/21/18 04:00 11/21/18 04:00 11/21/18 04:00 11/21/18 04:00 11/21/18 04:00 General: Alert, In no apparent distress, Oriented x3 Cardiovascular: No edema, Normal pulses (pulses are normal however arterial dopplers reveal diminished toe brachial index consistent with small vessel disease) Capillary refill: >2 Seconds Musculoskeletal: No clubbing, No swelling, No contractures, No erythema, No tenderness, No warmth Integumentary: Diabetic ulcer (right fifth toe is gangrenous and nonviable proximally to midshaft of right fifth digit proximal phalanx. Small superficial ulceration right third digit lateral aspect with granular base, no probing, no signs of infection.) Neurological: Abnormal sensation Laboratory Data (last 24 hrs) 11/20/18 12:30: PT 13.1 H, INR 1.11 11/20/18 12:30: Sodium 135 L, Potassium 3.4 L, BUN 18, Creatinine 0.88, Glucose 366 H 11/20/18 12:30: WBC 6.1, Hgb 12.5, Hct 35.3 L, Plt Count 237 Imagings Data: xrays consistent with early osteomyelitis right fifth digit - Problems (1) Diabetic foot ulcer Current Visit: Yes Status: Acute Qualifiers: Diabetic foot ulcer location: toe Diabetes mellitus type: type 2 Laterality: left Non-pressure ulcer stage: with necrosis of muscle Qualified Code(s): E11.621 - Type 2 diabetes mellitus with foot ulcer; L97.523 - Non-pressure chronic ulcer of other part of left foot with necrosis of muscle (2) Diabetes mellitus Onset Date: 05/21/14 Current Visit: No Status: Acute Conclusions/Impression: Due to nonviability of the right fifth digit patient is scheduled for right fifth digit amputation today. i will follow the patient in wound care after discharge
--- NOTE | 2018-11-21 08:40 | EKG ---
Test Date: 2018-11-20 Test Time: 12:38:06 Application Security Architect: JENY MEASUREMENT RESULTS: Intervals: Rate: 85 CO: 152 QRSD: 80 QT: 410 QTc: 487 [place]: P: 34 CO: 152 QRS: 41 T: 37 INTERPRETIVE STATEMENTS: Normal sinus rhythm Prolonged QT Abnormal ECG Compared to ECG 03/12/2015 09:37:05 Prolonged QT interval now present Sinus tachycardia no longer present Right-axis deviation no longer present Electronically Signed On 11-21-18 08:39:07 CDT by Jerzy Dang
[2018-11-21] MEDS ORDERED: MONTELUKAST 10 MG TAB PO SCH (09:00)
[2018-11-21] MEDS ORDERED: OLMESARTAN PO SCH (09:00)
[2018-11-21] MEDS ORDERED: HOME MED 1 EA UNK (Citalopram Hydrobromide [Citalopram Hbr] 40 MG) PO SCH (09:00)
[2018-11-21] MEDS: KETOCONAZOLE CREAM 15 GM TUBE TOP SCH ×2 (09:00→14:00)
[2018-11-21] MEDS ORDERED: HYDROCHLOROTHIAZIDE PO SCH (09:00)
[2018-11-21] MEDS ORDERED: VALSARTAN 160 MG TAB PO SCH (09:00)
[2018-11-21] MEDS ORDERED: OMEPRAZOLE MAGNESIUM 40 MG PO SCH (09:00)
[2018-11-21] MEDS ORDERED: hydroCHLOROthiazide 25 MG TAB PO SCH (09:00)
[2018-11-21] MEDS ORDERED: CITALOPRAM 10 MG TABLET PO SCH (09:00)
[2018-11-21] MEDS: INSULIN -REGULAR HUMAN 50 UNIT/0.5 ML ML SQ SCH ×2 (09:23→11:30)
[2018-11-21] MEDS: INSULIN 70/30 100 UNITS/ML SQ SCH (09:24)
[2018-11-21] MEDS ORDERED: INSULIN -REGULAR HUMAN 50 UNIT/0.5 ML ML ONE (11:16)
--- NOTE | 2018-11-21 11:33 | P.PN ---
Subjective Date of Service: 11/21/18 Chief Complaint: Toe ulceration Subjective: No new changes Patient seen and examined at bedside. Chart reviewed and case discussed with nursing staff. Review of Systems 10-point ROS is otherwise unremarkable Physical Examination - Vital Signs Temperature: 98.3 F Blood Pressure: 145/65 Pulse: 93 Respirations: 18 Pulse Ox (%): 96 - Physical Exam General: Alert, In no apparent distress HEENT: Atraumatic, PERRLA, EOMI Neck: Supple, JVD not distended Respiratory: Clear to auscultation bilaterally, Normal air movement Cardiovascular: Regular rate/rhythm, Normal S1 S2 Gastrointestinal: Normal bowel sounds, No tenderness Musculoskeletal: Tenderness Integumentary: Diabetic ulcer Neurological: Normal speech, Normal tone, Normal affect Lymphatics: No axilla or inguinal lymphadenopathy - Studies Laboratory Data (last 24 hrs) 11/20/18 12:30: PT 13.1 H, INR 1.11 11/20/18 12:30: Sodium 135 L, Potassium 3.4 L, BUN 18, Creatinine 0.88, Glucose 366 H 11/20/18 12:30: WBC 6.1, Hgb 12.5, Hct 35.3 L, Plt Count 237 Assessment And Plan - Current Problems (Diagnosis) (1) Diabetic foot ulcer Current Visit: Yes Status: Acute Plan: -Dr. barraza consulted, recommendations appreciated. Patient will be pending OR today for amputation of the toe. -will continue IV Zosyn in the meanwhile -pain control -Zofran for nausea -continue IV fluids -NPO -strict blood sugar control Qualifiers: Diabetic foot ulcer location: toe Diabetes mellitus type: type 2 Laterality: left Non-pressure ulcer stage: with necrosis of muscle Qualified Code(s): E11.621 - Type 2 diabetes mellitus with foot ulcer; L97.523 - Non-pressure chronic ulcer of other part of left foot with necrosis of muscle (2) Hypertension Current Visit: No Status: Chronic Plan: Stable, restart home medication Qualifiers: Hypertension type: essential hypertension Qualified Code(s): I10 - Essential (primary) hypertension (3) Peripheral neuropathy Current Visit: Yes Status: Chronic Qualifiers: Peripheral neuropathy type: polyneuropathy associated with underlying disease Qualified Code(s): G63 - Polyneuropathy in diseases classified elsewhere (4) Depression Current Visit: No Status: Chronic Qualifiers: Depression Type: unspecified Qualified Code(s): F32.9 - Major depressive disorder, single episode, unspecified (5) Chronic pain Current Visit: No Status: Chronic Qualifiers: Chronic pain type: chronic pain syndrome Qualified Code(s): G89.4 - Chronic pain syndrome (6) Diabetes mellitus with hyperglycemia Onset Date: 12/07/14 Current Visit: No Status: Chronic Plan: Not well controlled. -Will restart home insulin -Accu-Cheks ACHS -mild sliding scale insulin -monitor blood sugars and adjust as needed. Qualifiers: Diabetes mellitus type: type 2 Diabetes mellitus alf insulin use: with alf use Qualified Code(s): E11.65 - Type 2 diabetes mellitus with hyperglycemia; Z79.4 - intermediate designer (current) use of insulin - Plan DVT prophylaxis: Hold for OR tomorrow GI prophylaxis: None Diet: Diabetic, NPO after midnight Disposition: Anticipate amputation of the toe with Dr. barraza today
[2018-11-21] MEDS ORDERED: LIDOCAINE 1% MPF 30 ML VIAL ONE (11:49)
[2018-11-21] MEDS ORDERED: MIDAZOLAM HCL 2 MG/2 ML INJ ONE (12:42)
[2018-11-21] MEDS ORDERED: FENTANYL CITR 100 MCG/2 ML ONE (12:42)
[2018-11-21] MEDS ORDERED: PROPOFOL 200 MG/20 ML VIAL IV ONE (12:42)
[2018-11-21] MEDS ORDERED: LIDOCAINE 2% MPF 5 ML VIAL ONE (12:43)
[2018-11-21] MEDS ORDERED: ONDANSETRON 4 MG/2 ML VIAL ONE (13:15)
--- NOTE | 2018-11-21 13:21 | P.OP ---
Radio Operator Ground: Preoperative diagnosis: right fifth digit gangrene Postoperative diagnosis: same Primary procedure: right fifth digit amputation Other procedure(s): none Anesthesia: mac with 10 cc 1:10.5% marcaine 1% lidocaine plain Estimated blood loss: <10cc Specimen: bone for gross and micro Findings: gangrenous right fifth digit Operative Technique: amputation right fifth digit amputation via racquet incision and closure via skin sutures Complications: None Transferred to: Recovery Room Condition: Good
[2018-11-21] MEDS ORDERED: NA CHLORIDE 0.9% 1,000 ML ONE (13:24)
[2018-11-21 13:53] VITALS: O2SAT 93
--- NOTE | 2018-11-21 15:55 | P.DS ---
Admission Date: 11/20/18 Discharge Date: 11/21/18 Discharge Condition: GOOD Reason for Admission: Toe ulceration Consultations: Podiatry Procedures: 11/21/2018: Left foot, 5th toe amputation - Problems (1) Diabetic foot ulcer Current Visit: Yes Status: Acute Qualifiers: Diabetic foot ulcer location: toe Diabetes mellitus type: type 2 Laterality: left Non-pressure ulcer stage: with necrosis of muscle Qualified Code(s): E11.621 - Type 2 diabetes mellitus with foot ulcer; L97.523 - Non-pressure chronic ulcer of other part of left foot with necrosis of muscle (2) Hypertension Current Visit: No Status: Chronic Qualifiers: Hypertension type: essential hypertension Qualified Code(s): I10 - Essential (primary) hypertension (3) Peripheral neuropathy Current Visit: Yes Status: Chronic Qualifiers: Peripheral neuropathy type: polyneuropathy associated with underlying disease Qualified Code(s): G63 - Polyneuropathy in diseases classified elsewhere (4) Depression Current Visit: No Status: Chronic Qualifiers: Depression Type: unspecified Qualified Code(s): F32.9 - Major depressive disorder, single episode, unspecified (5) Chronic pain Current Visit: No Status: Chronic Qualifiers: Chronic pain type: chronic pain syndrome Qualified Code(s): G89.4 - Chronic pain syndrome (6) Diabetes mellitus with hyperglycemia Onset Date: 12/07/14 Current Visit: No Status: Chronic Qualifiers: Diabetes mellitus type: type 2 Diabetes mellitus penitentiary insulin use: with tank terminal gauger use Qualified Code(s): E11.65 - Type 2 diabetes mellitus with hyperglycemia; Z79.4 - skilled nursing (current) use of insulin Brief History of Present Illness: This is a 48-year-old female with history of hypertension, diabetes, peripheral neuropathy, depression who presented to the emergency room after being referred to the ER from Dr. Orellana's office. Per patient, she notices left foot blister about a month ago, she was following up with Dr. orellana. It seemed to be doing well until recently when she saw Dr. ramey in his office. It was noted that the alteration had gotten worse and there was a new ulceration that had developed between 3rd and 4th toe. She was then told to go to the emergency room from his office. She presented to the ER this morning. She denied any fevers, chills, vomiting, chest pain, shortness of breath, headache, dizziness, lightheadedness, GI or complaints. She did endorse nausea along with the ulceration. Pain was well controlled. In the ER, blood pressure was 130/62, heart rate of 90, respirations of 18, afebrile at 99.2, satting 95% on room air and a BMI of 29.7. Labs were remarkable for blood sugars of 366. She received Zofran and Zosyn in the ER. The time of my exam, she is alert oriented x3, in no acute distress and hemodynamically stable. Hospital Course: Patient was admitted for diabetic foot ulcer. Dr. Orellana, podiatry was consulted. Patient was started on IV fluids, IV pain control and IV antibiotics. She underwent toe amputation of the left foot on 11/21/2018. Patient did well postop and she tolerated the procedure well. She was then cleared for discharge by podiatry. She was discharged home on doxycycline for 14 day course. The diagnoses and treatment plan was explained to her, all questions were answered and she verbalized understanding. She otherwise did well throughout the stay. She was then discharged home in a safe and stable manner. She has an appointment in the wound Care Clinic with Dr. Orellana on 11/24/18. Vital Signs/Physical Exam: Temp Pulse Resp BP Pulse Ox 98.4 F 77 16 112/48 L 96 11/21/18 13:50 11/21/18 13:50 11/21/18 13:50 11/21/18 13:50 11/21/18 11:55 General: Alert, In no apparent distress HEENT: Atraumatic, PERRLA, EOMI Neck: Supple, JVD not distended Respiratory: Clear to auscultation bilaterally, Normal air movement Cardiovascular: Regular rate/rhythm, Normal S1 S2 Gastrointestinal: Normal bowel sounds, No tenderness Musculoskeletal: No tenderness, Other (s/p 5th toe amputation, bandage clean/dry /intact) Integumentary: No rashes Neurological: Normal speech, Normal tone, Normal affect Lymphatics: No axilla or inguinal lymphadenopathy Laboratory Data at Discharge: WBC 7.9 K/uL (4.3-10.9) D 11/21/18 06:23 Hgb 11.9 g/dL (12.0-15.0) L 11/21/18 06:23 Hct 33.4 % (36.0-45.0) L 11/21/18 06:23 Plt Count 227 K/uL (152-406) 11/21/18 06:23 PT 13.1 SECONDS (9.5-12.5) H 11/20/18 12:30 INR 1.11 11/20/18 12:30 Sodium 136 mmol/L (136-145) 11/21/18 06:23 Potassium 4.1 mmol/L (3.5-5.1) 11/21/18 06:23 BUN 29 mg/dL (7-18) H 11/21/18 06:23 Creatinine 1.00 mg/dL (0.55-1.3) 11/21/18 06:23 Glucose 319 mg/dL (74-106) H 11/21/18 06:23 Total Bilirubin 0.3 mg/dL (0.2-1.0) 11/21/18 06:23 AST 39 U/L (15-37) H 11/21/18 06:23 ALT 37 U/L (12-78) 11/21/18 06:23 Alkaline Phosphatase 89 U/L (45-117) 11/21/18 06:23 Home Medications: Omeprazole Magnesium [Prilosec Otc] 40 mg PO DAILY 06/05/17 Promethazine Suppos [Phenergan -Suppos*] 25 mg PO Q6HP PRN 06/05/17 Atorvastatin Calcium 40 mg PO BEDTIME 11/20/18 Cetirizine HCl [Zyrtec] 10 mg PO DAILY 11/20/18 Citalopram Hydrobromide [Citalopram HBr] 40 mg PO DAILY 11/20/18 Dilaudid Pain Pump 11/20/18 Fluticasone [Flonase 50MCG Nasal [place]*] 1 spray IH DAILY 11/20/18 Insulin 70/30 NPH/Reg Human [Novolin 70/30*] 55 unit SQ BID 11/20/18 Ketoconazole 0.5 tube TOP TID 11/20/18 Montelukast Sodium [Singulair] 1 tab PO DAILY 11/20/18 Mupirocin Oint [Bactroban 2% Ointment*] 1 bam TOP PRN 11/20/18 Olmesartan/Hydrochlorothiazide [Olmesartan-Hctz 40-25 mg Tab] 1 tab PO DAILY Triamcinolone 0.1% Crm [Kenalog 0.1% Cream*] 1 bam TOP PRN 11/20/18 Vancomycin HCl 250 mg TOP TID 11/20/18 Zolpidem Tartrate [Ambien*] 10 mg PO BEDTIME 11/20/18 Codeine/APAP [Tylenol W/Codeine #3 tab] 1 tab PO Q6HP PRN #12 tab 11/21/18 Doxycycline Monohydrate 100 mg PO BID #28 capsule 11/21/18 Fluconazole [Diflucan] 150 mg PO ONCE #1 tablet 11/21/18 New Medications: Codeine/APAP [Tylenol W/Codeine #3 tab] 1 tab PO Q6HP PRN #12 tab PRN Reason: Pain Doxycycline Monohydrate 100 mg PO BID #28 capsule Fluconazole [Diflucan] 150 mg PO ONCE #1 tablet Patient Discharge Instructions: Please make sure to keep your wound Care Clinic appointment on Saturday. Please return to the emergency room for worsening symptoms. Diet: ADA Activity: Ad leny
[2018-11-21 16:25] VITALS: BP 118/55; TEMP 97.1
--- NOTE | 2018-11-25 09:41 | OP ---
Surgeon: Boo Orellana Jr, DPM Preoperative Diagnosis: Right 5th digit gangrene. Postoperative Diagnosis: Right 5th digit gangrene. Procedure: Right 5th digit amputation. Pathology: Digit sent for gross and micro. Anesthesia: MAC with 10 mL of 0.5% Marcaine, 1% lidocaine plain. Hemostasis: Pneumatic ankle tourniquet at 250 mmHg. Estimated Blood Loss: Less than 10 cc. Materials: 3-0 prolene. Injectables: None. Complication: None. Description Of Procedure: Patient was brought into [facility] operating room, placed on the OR table in a supine position. Patient was placed under sedation by anesthesiologist and 10 mL of 0.5% Marcaine and 1% lidocaine plain were injected in local fashion in the right lower extremity. A well-padded pneumatic ankle tourniquet was applied to the right lower extremity and the patient was prepped and draped in the usual aseptic manner. Attention was then directed to the right 5th digit, at which time a racket incision was made circumferentially around the 5th digit proximal phalanx. The incision was noted to bleed significantly, so the pneumatic ankle tourniquet was then inflated. Skin incision was carried superficial deep straight to bone and then at the level of the 5th MPJ capsule, a capsulotomy was performed, disarticulation was performed at this area. There was no nonviable or purulent tissue noted. The wound was then irrigated with 3 L of normal sterile saline with pulse lavage and closure the skin was obtained utilizing 3-0 Prolene. Sterile dressing consisting of 4x4s, Xeroform, and Kerlix was applied to the area as well as Neosporin and gauze bandage on the lateral aspect of the right 4th digit and aspect of the right 3rd digit where ulcerative lesions were identified. Pneumatic ankle tourniquet was deflated with prompt hyperemic response being noted to the right lower extremity. The patient tolerated the procedure and anesthesia well, was transferred to recovery with vital signs stable and neurovascular status intact. SHER/CAITY Voice ID: [id number] Report ID: [id number] PETER
== END 2018-11-21 16:55 | disposition home or self-care (01) | DRG 256 ==
LOC: ER 11:34 → ERHOLD 13:16 → 4TH 15:10
PROVIDERS: ADMIT Family Medicine; ATTEND Family Medicine
PROC: 0Y6X0Z1 Detachment at Right 5th Toe, High, Open Approach (ICD-10-PCS; principal; 2018-11-21 12:00)
DX: E11.52 Type 2 diabetes mellitus with diabetic peripheral angiopathy with gangrene (principal); I96 Gangrene, not elsewhere classified; E11.621 Type 2 diabetes mellitus with foot ulcer; F32.9 Major depressive disorder, single episode, unspecified; G89.4 Chronic pain syndrome; I10 Essential (primary) hypertension; G62.9 Polyneuropathy, unspecified; E11.65 Type 2 diabetes mellitus with hyperglycemia; Z79.4 Long term (current) use of insulin
CPT/HCPCS: 36415; 80048; 80053; 81003; 81015; 82962; 84132; 85025; 85610; 87040; 87070; 87075; 87077; 87086; 87088; 87186; 87205; 88305; 88311; 93005; 93925; 94760; 96365; 96375; 99285; J2250; J2405; J2543; J2704; J3010; J7030

== ENCOUNTER 2022-03-27 12:50 | Emergency (ER) | payer BC ==
--- OUTSIDE RECORDS SUMMARY | 2022-03-27 12:54 | XMS REPORT | Continuity of Care Document ---
:1970 Author Organization [facility] t Address [address] [place] [address] Care Team Providers Name Role Phone HOWARD MOURA Attending Clinician Unavailable Brown_Shahla Attending Clinician Unavailable HOWARD MOURA Admitting Clinician Unavailable Dionte Admitting Clinician Unavailable Payers Payer Name Policy Type Policy Number Effective Date Expiration Date [place] [id number] 2021 00:00:00 [place] Problems Condition Condition Condition Status Onset Resolution Last Treating Co mments Source Name Details Category Date Date Treatment Clinician Date Nausea and Nausea and Problem Active [facility] vomiting Vomiting 6-24 Family 00:00: Practic 00 e Difficulty Difficulty Problem Active [facility] passing Passing 6-24 Family urine Urine 00:00: Practic e Hyperlipid Hyperlipid Problem Active [facility] emia emia 5-24 Family 00:00: Practic 00 e Obesity Obesity Problem Active [place] 5-24 Family 00:00: Practic 00 e Long-term Long-term Problem Active Mireille anastacio current Current 5-24 Family use of Use of 00:00: Practic insulin Insulin 00 e Peripheral Peripheral Problem Active [facility] vascular Vascular 5-10 Family disease Disease 00:00: Practic 00 e Foot Foot Problem Active [facility] callus Callus 5-10 Family 00:00: Practic 00 e Amputated Amputated Problem Active Mireille anastacio toe Toe 5-10 Family 00:00: Practic 00 e Neuropathy Neuropathy Problem Active [facility] due to Due to 5-10 Family type 2 Type 2 00:00: Practic diabetes Diabetes 00 e mellitus Mellitus Foot ulcer Foot Ulcer Problem Active [facility] due to Due to 5-10 Family type 2 Type 2 00:00: Practic diabetes Diabetes 00 e mellitus Mellitus Type 2 Type 2 Problem Active [facility] diabetes Diabetes 5-10 Family mellitus Mellitus 00:00: Practi c 00 e Depressive Depressive Problem Active [facility] disorder Disorder 5-10 Family 00:00: Practic e Insomnia Insomnia Problem Active [facility] ge 5-10 Family 00:00: Practic e Allergies, Adverse Reactions, Alerts This patient has no known allergies or adverse reactions. Medications Ordered Filled Start Stop Current Ordering Indication Dosage Frequency Signature Comments Components Source Medication Medication Date Date Medication? Clinician (SIG) Name Name nystatin nystatin No nystatin Mireille anastacio 100,000 100,000 100,000 Family unit/mL unit/mL unit/mL Practi c oral oral oral e suspension suspension suspension TAKE 6 ML TAKE 6 ML TAKE 6 ML (0.6 (0.6 (0.6 MILLION MILLION MILLION UNITS) BY UNITS) BY UNITS) BY MOUTH 4 MOUTH 4 MOUTH 4 TIMES PER TIMES PER TIMES PER DAY DAY DAY olmesartan olmesartan No 1 Q1D olmesartan [facility] 40 40 40 Family mg-hydrochl mg-hydrochl mg-hydroch Practic orothiazide orothiazide lorothiazi e 25 mg 25 mg de 25 mg tablet Take tablet Take tablet 1 tablet 1 tablet Take 1 every day every day tablet by oral by oral every day route for route for by oral 90 days. 90 days. route for 90 days. omeprazole omeprazole No 1capsul Q1D omeprazole [facility] 40 mg 40 mg e(s) 40 mg Family capsule,del capsule,del capsule,de Practic ayed ayed layed e release release release Take 1 Take 1 Take 1 capsule capsule capsule every day every day every day by oral by oral by oral route for route for route for 90 days. 90 days. 90 days. ondansetron ondansetron No ondansetro [facility] 8 mg 8 mg n 8 mg Family disintegrat disintegrat disintegra Practic ing tablet ing tablet ting e PLACE 1 PLACE 1 tablet TABLET (8 TABLET (8 PLACE 1 MG) ON THE MG) ON THE TABLET (8 TONGUE AND TONGUE AND MG) ON THE ALLOW TO ALLOW TO TONGUE AND DISSOLVE DISSOLVE ALLOW TO EVERY 8 EVERY 8 DISSOLVE HOURS HOURS EVERY 8 NEEDED NEEDED HOURS NEEDED OneTouch OneTouch No OneTouch Mireille anastacio Delica Plus Delica Plus [facility] Family Lancet 33 Lancet 33 Plus Pract ic gauge USE gauge USE Lancet 33 e DIRECTED DIRECTED gauge USE 4 TIMES 4 TIMES DAILY DAILY DIRECTED 4 TIMES DAILY OneTouch OneTouch No OneTouch Mireille anastacio Verio test Verio test Verio test Family strips USE strips USE strips USE Practic 4 STRIPS 4 STRIPS 4 STRIPS e EVERY DAY EVERY DAY EVERY DAY BY BY BY MITZI TUCKER US ROUTE US ROUTE OUS ROUTE pregabalin pregabalin No pregabalin [facility] 150 mg 150 mg 150 mg Family capsule capsule capsule Practi c TAKE 1 TAKE 1 TAKE 1 e CAPSULE BY CAPSULE BY CAPSULE BY MOUTH TWICE MOUTH TWICE MOUTH A DAY FOR A DAY FOR TWICE A 30 DAYS 30 DAYS DAY FOR 30 DAYS promethazin promethazin No promethazi [facility] e 25 mg e 25 mg ne 25 mg Famil y rectal rectal rectal Practic suppository suppository suppositor e y Santyl 250 Santyl 250 No Santyl 250 Village unit/gram unit/gram unit/gram Family topical topical topical Practi c ointment ointment ointment e APPLY TO APPLY TO APPLY TO WOUND EVERY WOUND EVERY WOUND DAY DAY EVERY DAY trazodone trazodone No 1 Q1D trazodone [place] 50 mg 50 mg 50 mg Family tablet Take tablet Take tablet Practic 1 tablet 1 tablet Take 1 e every day every day tablet by oral by oral every day route for route for by oral 90 days. 90 days. route for 90 days. Vascepa 1 Vascepa 1 No 1capsul BID Vascepa 1 Village gram gram e(s) gram Family capsule capsule capsule Practi c Take 1 Take 1 Take 1 e capsule capsule capsule twice a day twice a day twice a by oral by oral day by route for route for oral route 30 days. 30 days. for 30 days. zolpidem 10 zolpidem 10 No zolpidem [facility] mg tablet mg tablet 10 mg Fami ly TAKE 1 TAKE 1 tablet Practic TABLET BY TABLET BY TAKE 1 e MOUTH EVERY MOUTH EVERY TABLET BY DAY AT DAY AT MOUTH BEDTIME BEDTIME EVERY DAY NEEDED NEEDED AT BEDTIME NEEDED amitriptyli amitriptyli No amitriptyl [facility] ne 50 mg ne 50 mg ine 50 mg Fa chacorta tablet TAKE tablet TAKE tablet Practic 1 TABLET BY 1 TABLET BY TAKE 1 e MOUTH AT MOUTH AT TABLET BY BEDTIME BEDTIME MOUTH AT NEEDED FOR NEEDED FOR BEDTIME PAIN 30 PAIN 30 NEEDED FOR DAYS DAYS PAIN 30 DAYS atorvastati atorvastati No 1 Q1D atorvastat [facility] n 80 mg n 80 mg in 80 mg Famil y tablet Take tablet Take tablet Practic 1 tablet 1 tablet Take 1 e every day every day tablet by oral by oral every day route for route for by oral 90 days. 90 days. route for 90 days. BD BD No BD [facility] Ultra-Fine Ultra-Fine Ultra-Fine Family Mini Pen Mini Pen Mini Pen Pra ctic Needle 31 Needle 31 Needle 31 e gauge x gauge x gauge x 3/16" USE 3/16" USE 3/16" USE DIRECTED DIRECTED TWICE A DAY TWICE A DAY DIRECTED TWICE A DAY buspirone buspirone No 1 BID buspirone [facility] 10 mg 10 mg 10 mg Family tablet Take tablet Take tablet Practic 1 tablet 1 tablet Take 1 e twice a day twice a day tablet by oral by oral twice a route for route for day by 90 days. 90 days. oral route for 90 days. citalopram citalopram No 1 Q1D citalopram [facility] 40 mg 40 mg 40 mg Family tablet Take tablet Take tablet Practic 1 tablet 1 tablet Take 1 e every day every day tablet by oral by oral every day route for route for by oral 90 days. 90 days. route for 90 days. ezetimibe ezetimibe No 1 Q1D ezetimibe [facility] 10 mg 10 mg 10 mg Family tablet Take tablet Take tablet Practic 1 tablet 1 tablet Take 1 e every day every day tablet by oral by oral every day route for route for by oral 90 days. 90 days. route for 90 days. Farxiga 10 Farxiga 10 No Farxiga 10 Village mg tablet mg tablet mg tablet Family TAKE 1 TAKE 1 TAKE 1 Practic TABLET BY TABLET BY TABLET BY e MOUTH EVERY MOUTH EVERY MOUTH DAY IN THE DAY IN THE EVERY DAY MORNING MORNING IN THE MORNING FreeStyle FreeStyle No FreeStyle [facility] [place] 2 [place] 2 [place] 2 Family Sensor kit Sensor kit Sensor kit Practic USE USE USE e DIRECTED DIRECTED DIRECTED DAILY BUT DAILY BUT DAILY BUT CHANGE CHANGE CHANGE EVERY 14 EVERY 14 EVERY 14 DAYS DAYS DAYS Humulin R Humulin R No Humulin R [facility] U-500 U-500 U-500 Family (Conc) (Conc) (Conc) Practic Insulin Insulin Insulin e Kwikpen 500 Kwikpen 500 Kwikpen unit/mL (3 unit/mL (3 500 mL) mL) unit/mL (3 subcutaneou subcutaneou mL) s GIVE 80 s GIVE 80 subcutaneo UNITS UNITS us GIVE 80 BEFORE BEFORE UNITS BREAKFAST BREAKFAST BEFORE AND DINNER. AND DINNER. BREAKFAST INCREASE INCREASE AND DIRECTED: DIRECTED: DINNER. TOTAL DAILY TOTAL DAILY INCREASE DOSE 300 DOSE 300 UNITS UNITS DIRECTED: TOTAL DAILY DOSE 300 UNITS levofloxaci levofloxaci No 1 Q1D levofloxac [facility] n 500 mg n 500 mg in 500 mg Fa chacorta tablet Take tablet Take tablet Practic 1 tablet 1 tablet Take 1 e every day every day tablet by oral by oral every day route. route. by oral route. Linzess 290 Linzess 290 No Linzess [facility] mcg capsule mcg capsule 290 mcg Family capsule Practic e metformin metformin No metformin [facility] ER 500 mg ER 500 mg ER 500 mg Family tablet,exte tablet,exte tablet,ext Practic nded nded ended e release 24 release 24 release 24 hr Take 2 hr Take 2 hr Take 2 tablets tablets tablets twice a day twice a day twice a by oral by oral day by route with route with oral route meals for meals for with meals 90 days. 90 days. for 90 days. methocarbam methocarbam No methocarba [facility] ol 750 mg ol 750 mg mol 750 mg Family tablet TAKE tablet TAKE tablet Practic 1 TABLET 1 TABLET TAKE 1 e NEEDED FOR NEEDED FOR TABLET MUSCLE MUSCLE NEEDED FOR SPASMS SPASMS MUSCLE ORALLY AT ORALLY AT SPASMS BEDTIME 30 BEDTIME 30 ORALLY AT DAYS DAYS BEDTIME 30 DAYS metoprolol metoprolol No 1 Q1D metoprolol [facility] succinate succinate succinate Family ER 50 mg ER 50 mg ER 50 mg Pra ctic tablet,exte tablet,exte tablet,ext e nded nded ended release 24 release 24 release 24 hr Take 1 hr Take 1 hr Take 1 tablet tablet tablet every day every day every day by oral by oral by oral route for route for route for 90 days. 90 days. 90 days. montelukast montelukast No 1 Q1D montelukas [facility] 10 mg 10 mg t 10 mg Family tablet Take tablet Take tablet Practic 1 tablet 1 tablet Take 1 e every day every day tablet by oral by oral every day route for route for by oral 90 days. 90 days. route for 90 days. mupirocin 2 mupirocin 2 No mupirocin [facility] % topical % topical 2 % Famil y ointment ointment topical Prac tic APPLY TO APPLY TO ointment e WOUND DAILY WOUND DAILY APPLY TO WOUND DAILY Vital Signs Vital Name Observation Time Observation Value Comments Source BP Diastolic 2021-08-18 00:00:00 60 mm[Hg] [facility] Height 2021-08-18 00:00:00 67.5 [in_i] [facility] BMI (Body Mass 2021-08-18 00:00:00 30.9 kg/m2 [facility] Practice BP Systolic 2021-08-18 00:00:00 106 mm[Hg] [facility] Body Weight 2021-08-18 00:00:00 200 [lb_av] [facility] BP Diastolic 2021-07-18 00:00:00 62 mm[Hg] [facility] Height 2021-07-18 00:00:00 67.5 [in_i] [facility] BMI (Body Mass 2021-07-18 00:00:00 30.1 kg/m2 [facility] Practice BP Systolic 2021-07-18 00:00:00 97 mm[Hg] [facility] Body Weight 2021-07-18 00:00:00 195 [lb_av] [facility] BP Diastolic 2021-07-04 00:00:00 69 mm[Hg] [facility] Height 2021-07-04 00:00:00 67.5 [in_i] [facility] BMI (Body Mass 2021-07-04 00:00:00 30.2 kg/m2 [place] Index) Practice BP Systolic 2021-07-04 00:00:00 116 mm[Hg] [facility] Body Weight 2021-07-04 00:00:00 195.6 [lb_av] [facility] Procedures Procedure Date / Time Performed Performing Clinician [facility] e DOPPLER, DUPLEX 2021-07-04 00:00:00 [facility] Rivera de la cruz ARTERIAL SCAN OF LOWER Practice EXT; (BILAT) Plan of Care Planned Activity Planned Date Details Comments Source Diagnostic Test 2021-08-18 glucose, Village Fami ly Pending 00:00:00 fingerstick, blood Practice [code = glucose, fingerstick, blood] Encounters Start End Encounter Admission Attending Care Care Encounter Source Date/Time Date/Time Type Type Clinicians Facility Department ID 2022-01-29 2022-01-29 Inpatient U [address] 11:48:00 15:50:00 [facility] 2021-09-05 2021-09-05 Outpatient Daniel_T VFP VFP [id number] [address] [place] [address] 03:12:00 03:12:00 [id number] Family Practic e 2021-08-18 2021-08-18 Outpatient Daniel_T VFP VFP [id number] [address] [place] [address] 10:43:00 10:43:00 [id number] Family Practic e 2021-08-18 2021-08-18 James VFP [place] - [id number] [facility] 00:00:00 00:00:00 [facility] Paz Dasilva MD: [id number] Shade malcolm Shadow ow [place] [facility], [address], [place] [address] , Ph. 2021-08-09 2021-08-09 Outpatient Daniel_T VFP VFP [id number] [address] [place] [address] 04:33:00 04:33:00 [id number] Family Practic e 2021-07-26 2021-07-26 Outpatient Daniel_T VFP VFP [id number] [address] [place] [address] 06:51:00 06:51:00 [id number] Family Practic e 2021-07-18 2021-07-18 Outpatient Daniel_T VFP VFP [id number] [address] [place] [address] 11:45:00 11:45:00 [id number] Family Practic e 2021-07-18 2021-07-18 James VFP [place] - [id number] [facility] 00:00:00 00:00:00 [facility] Paz Escalante MD: [id number] Shade malcolm [address], [place] [address] , Ph. 2021-07-04 2021-07-04 Outpatient Daniel_T VFP VFP [id number] 11-14 [facility] 11:34:00 11:34:00 [id number] Family Practic e 2021-07-04 2021-07-04 Outpatient Daniel_T VFP VFP [id number] 11-14 [facility] 11:34:00 11:34:00 [id number] Family Practic e 2021-07-04 2021-07-04 Outpatient Daniel_T VFP VFP [id number] 11-14 [facility] 11:34:00 11:34:00 [id number] Family Practic e 2021-07-04 2021-07-04 James VFP [place] - [id number] [facility] 00:00:00 00:00:00 Nicola [facility] - Practi genny MD: [id number] VM_HOU_Shad e [employer] [facility] [address], [place] [address] , Ph. 2021-07-03 2021-07-03 Outpatient Daniel_T VFP VFP [id number] 11-14 [facility] 11:14:00 11:14:00 [id number] Family Practic e Results Test Description Test Time Test Comments Results Result Comments Source Glucose [Mass/volume] in Capillary blood 2021-08-18 08:56:40 Test Item Value Reference Range Interpretation Comme nts Blood Glucose: mg/dl (test code = Blood Glucose: mg/dl) [facility] PracticeGlucose [Mass/volume] in Capillary [id number] 08:56:40 Test Item Value Reference Range Interpretation Comments Blood Glucose: mg/dl (test code = Blood 219 Glucose: mg/dl) [facility] Family PracticeGlucose [Mass/volume] in Capillary [id number] 09:55:04 Test Item Value Reference Range Interpretation Comments Blood Glucose: mg/dl (test code = Blood 251 Glucose: mg/dl) [facility] Family PracticeGlucose [Mass/volume] in Capillary [id number] 09:55:04 Test Item Value Reference Range Interpretation Comments Blood Glucose: mg/dl (test code = Blood 251 Glucose: mg/dl) [facility] in Capillary [id number] 09:55:04 Test Item Value Reference Range Interpretation Comments Blood Glucose: mg/dl (test code = Blood 251 Glucose: mg/dl) [facility] device [id number] 09:13:39 Test Item Value Reference Range Interpretation Comments Hemoglobin A1C Fingerstick: (test code 9.3 = Hemoglobin A1C Fingerstick:) [facility] [id number] 09:13:39 Test Item Value Reference Range Interpretation Comments Hemoglobin A1C Fingerstick: (test code 9.3 = Hemoglobin A1C Fingerstick:) [facility]/volume] in Capillary [id number] 09:11:35 Test Item Value Reference Range Interpretation Comments Blood Glucose: mg/dl (test code = Blood 363 Glucose: mg/dl) [facility]/volume] in Capillary [id number] 09:11:35 Test Item Value Reference Range Interpretation Comments Blood Glucose: mg/dl (test code = Blood 363 Glucose: mg/dl) [facility]
--- NOTE | 2022-03-27 13:30 | RAD REPORT ---
EXAM DESCRIPTION: RAD - Chest Single View - 03/27/2022 1:22 pm CLINICAL HISTORY: CHEST PAIN Chest pain. COMPARISON: CHEST SINGLE VIEW dated 03/12/2015; CHEST PA AND LAT 2 VIEW dated 12/06/2014; CHEST SINGL E VIEW dated 09/21/2014; CHEST SINGLE VIEW dated 08/21/2014 FINDINGS: Portable technique limits examination quality. The lungs are grossly clear. The heart is normal in size. No displaced fractures. IMPRESSION: No acute intrathoracic process suspected.
--- NOTE | 2022-03-27 13:31 | RAD REPORT ---
EXAM DESCRIPTION: RAD - Foot Left 3 View - 03/27/2022 1:22 pm CLINICAL HISTORY: eval for osteo, 1st toe wound COMPARISON: Foot Left 3 View dated 04/01/2015 FINDINGS: Small calcaneal spurs. Soft tissue swelling is seen affecting the great toe. No plain radi ograph findings for osteomyelitis. MRI foot would be suggested if concern persists, which is more sen sitive.
[2022-03-27 13:56] LABS: Protime INR 1.06
[2022-03-27 13:57] LABS: Hematocrit 45.1 % (36.0-45.0); Lymphocytes % 14.1 % (15.3-44.8); RBC Red Blood Cell Count 5.31 M/uL (3.86-4.86)
[2022-03-27 14:00] LABS: SARS-CoV-2 Antigen Rapid Res Negative (Negative)
[2022-03-27] MEDS ORDERED: ONDANSETRON 4 MG/2 ML VIAL ONE ×2 (14:06→18:59)
[2022-03-27] MEDS ORDERED: NA CHLORIDE 0.9% 1,000 ML ONE ×2 (14:06→17:23)
[2022-03-27 14:13] LABS: ALT/SGPT 37 U/L (13-56); AST/SGOT 44 U/L (15-37); Albumin 4.1 g/dL (3.4-5.0); Alkaline Phosphatase 131 U/L (45-117); BUN Blood Urea Nitrogen 11 mg/dL (7-18); Bicarbonate 24 mmol/L (21-32); Bilirubin Total 0.4 mg/dL (0.2-1.0); Glomerular Filtration Rate 105 ml/min (=/>90); Glucose Level 382 mg/dL (74-106); Potassium 3.4 mmol/L (3.5-5.1); Protein, Total 8.9 g/dL (6.4-8.2); Sodium Level 129 mmol/L (136-145)
[2022-03-27] MEDS ORDERED: PROMETHAZINE INJ 25 MG/ML AMP ONE ×2 (14:52→17:24)
[2022-03-27 15:22] LABS: Urine Bacteria None Seen /HPF (<20); Urine RBC <5 /HPF (None Seen)
[2022-03-27 16:43] LABS: Urine Blood Trace-intact (Negative); Urine Glucose 2+ (Negative); Urine Protein 3+ (Negative); Urine Specific Gravity 1.025 (1.005-1.030); Urine pH 5.5 (5.0-7.0)
--- NOTE | 2022-03-27 18:35 | ER ---
Nurse's Notes [facility] Name: Orquidea Martin Age: 51 yrs Sex: Female : 1970 Arrival Date: 03/27/2022 Time: 12:52 Bed 2 Private MD: Javid Gracia Diagnosis: Gastroparesis;Other chronic pancreatitis;Hyperglycemia, unspecified;Dehydration Presentation: 03/27 13:00 Chief complaint: Patient states: BGL at home read 'HIGH' also stated took BP and it was vg1 High as well, 200s systolic with NV and CP. Chief complaint: Provider assessing pt in triage. 13:00 Coronavirus screen: Vaccine status: Patient reports receiving the 2nd dose of the covid vg1 vaccine. Client denies travel out of the [place] in the last 14 days. Ebola Screen: Patient negative for fever greater than or equal to 101.5 degrees Fahrenheit, and additional compatible Ebola Virus Disease symptoms Patient denies exposure to infectious person. Initial Sepsis Screen: Does the patient meet any 2 criteria? HR > 90 bpm. Does the patient have a suspected source of infection?. Risk Assessment: Do you want to hurt yourself or someone else? Patient reports no desire to harm self or others. Onset of symptoms was March 27, 2022. 13:00 Acuity: FLAQUITO 2 vg1 13:02 Method Of Arrival: Ambulatory vg1 Triage Assessment: 13:08 General: Appears in no apparent distress. uncomfortable, Behavior is calm, cooperative. vg1 Pain: Complains of pain in left breast Pain currently is 5 out of 10 on a pain scale. Cardiovascular: Capillary refill < 3 seconds in bilateral fingers. GI: Reports nausea, vomiting. Derm: Skin is clammy. DIRECTOR SPEECH AND HEARING: 13:08 LMP N/A - Hysterectomy vg1 Historical: - Allergies: 13:08 metformin; vg1 13:08 morphine (nausea); vg1 - PMHx: 13:08 Chronic pain; constipation; Diabetes - NIDDM; neuropathy; Pancreatitis; vg1 - Immunization history:: Client reports receiving the 2nd dose of the Covid vaccine. - Social history:: Smoking status: Patient/guardian denies using tobacco, Stopped _ months ago 6. - Family history:: not pertinent. - Hospitalizations: : No recent hospitalization is reported. Screenin:12 [facility] ED Fall Risk Assessment (Adult) Score/Fall Risk Level 0 - 2 = Low Risk. Abuse iw screen: Denies threats or abuse. Denies injuries from another. Nutritional screening: Has had N/V for 3 or more days. Tuberculosis screening: No symptoms or risk factors identified. Assessment: 13:11 Reassessment: BGL 394 mg/dL. vg1 14:12 Reassessment: Patient appears in no apparent distress at this time. Patient and/or iw family updated on plan of care and expected duration. Pain level reassessed. Patient is alert, oriented x 3, equal unlabored respirations, skin warm/dry/pink. 19:24 Reassessment: Patient appears in no apparent distress at this time. Patient and/or iw family updated on plan of care and expected duration. Pain level reassessed. Patient is alert, oriented x 3, equal unlabored respirations, skin warm/dry/pink. Patient states feeling better. Patient states symptoms have improved. Vital Signs: 13:00 BP 187 / 97; Pulse 110; Resp 20; Temp 98.4(O); Pulse Ox 100% on R/A; Weight 81.65 kg; vg1 Height 5 ft. 8 in. (172.72 cm); Pain 5/10; 14:11 BP 187 / 86; Pulse 99; Resp 16; Pulse Ox 96% on R/A; iw 16:18 BP 175 / 74; Pulse 99; Resp 15; Pulse Ox 100% ; jl7 13:00 Body Mass Index 27.37 (81.65 kg, 172.72 cm) vg1 ED Course: 12:52 Patient arrived in ED. am2 12:53 Javid Garcia MD is Private Physician. am2 12:53 Yohan Ho MD is Attending Physician. rn 13:08 Triage completed. vg1 13:08 Arm band placed on. vg1 13:19 XRAY Foot LEFT 3 View Sent. iw 13:24 Chest Single View XRAY In Process Unspecified. EDMS 13:24 XRAY Foot LEFT 3 View In Process Unspecified. EDMS 13:44 Lilibeth Banks, RN is Primary Nurse. iw 13:44 Inserted saline lock: 22 gauge in right antecubital area, using aseptic technique. iw Blood collected. 14:12 Patient has correct armband on for positive identification. Client placed on continuous iw cardiac and pulse oximetry monitoring. NIBP monitoring applied. cardiac monitor technician on. 18:35 Anthony Burch MD is Referral Physician. rn 19:23 No provider procedures requiring assistance completed. IV discontinued, intact, iw bleeding controlled, No redness/swelling at site. Pressure dressing applied. Patient maintains SpO2 saturation greater than 95% on room air. Administered Medications: 14:11 Drug: Zofran (Ondansetron) 4 mg Route: IVP; Site: right antecubital; iw 14:11 Drug: NS 0.9% 1000 ml Route: IV; Rate: 1000 ml; Site: right antecubital; iw 16:18 Follow up: Response: No adverse reaction; IV Status: Completed infusion; IV Intake: jl7 1000ml 15:09 Drug: Phenergan (promethazine) 12.5 mg Route: IVP; Site: right antecubital; iw 17:37 Drug: NS 0.9% 1000 ml Route: IV; Rate: 1000 ml; Site: right antecubital; iw 17:37 Drug: Phenergan (promethazine) 12.5 mg Route: IVP; Site: right antecubital; iw 19:15 Drug: Insulin Regular Human 5 units {Co-Signature: ronnie (Keren Clifton RN).} Route: Sub-Q; iw Site: left upper arm; 19:15 Drug: Zofran (Ondansetron) 4 mg Route: IVP; Site: right antecubital; iw Medication: 19:23 VIS not applicable for this client. iw Intake: 16:18 IV: 1000ml; Total: 1000ml. jl7 Outcome: 18:35 Discharge ordered by . rn 19:23 Discharged to home ambulatory. iw 19:23 Condition: good 19:23 Discharge instructions given to patient, Instructed on discharge instructions, follow up and referral plans. medication usage, Demonstrated understanding of instructions, follow-up care, medications, Prescriptions given X 1. 19:24 Patient left the ED. iw Signatures: Dispatcher [employer] EDMS Lilibeth Banks, RN RN iw Yohan Ho MD MD rn Leal, Jahala, RN RN jl7 Britt Ely Victoria, RN RN vg1 Keren [email or web address]
--- NOTE | 2022-03-27 18:35 | EDPHYS ---
Physician Documentation [facility] Name: Orquidea Martin Age: 51 yrs Sex: Female : 1970 Arrival Date: 03/27/2022 Time: 12:52 Bed 2 Private MD: Javid Garcia ED Physician Yohan Ho HPI: 03/27 14:22 This 51 yrs old Female presents to ER via Ambulatory with complaints of High Blood rn Sugar, High Blood Pressure, Chest Pain, foot turning black, Nausea/Vomiting. 14:22 The patient or guardian reports hyperglycemia. Onset: The symptoms/episode rn began/occurred at an unknown time. Associated signs and symptoms: Pertinent positives: anorexia, nausea, vomiting, Pertinent negatives: decreased urine output. Current symptoms: In the emergency department the patient's symptoms are unchanged from the initial presentation. The patient has experienced similar episodes in the past. The patient has not recently seen a physician. Pt reports high blood sugar, vomiting, unable to keep anything down, has chronic pancreatitis/gastroparesis. Seen at [facility] yesterday and told "nothing [we] can do for you" and sent home without workup per patient. Reports chest pain, abd pain, vomiting, and generalized weakness. Also reports left great toe with open wound and color change consultant last 1-2 weeks. . 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 - Social history:: Smoking status: Patient/guardian denies using tobacco, Stopped _ months ago 6. - Family history:: not pertinent. - Hospitalizations: : No recent hospitalization is reported. ROS: 14:22 Constitutional: Negative for fever, chills, and weight loss, Eyes: Negative for injury, rn pain, redness, and discharge, Neck: Negative for injury, pain, and swelling, Cardiovascular: Negative for palpitations, and edema, Respiratory: Negative for shortness of breath, cough, wheezing, and pleuritic chest pain, Abdomen/GI: Negative for diarrhea, and constipation, MS/Extremity: Negative for injury and deformity, Skin: Negative for injury, rash, and discoloration, Neuro: Negative for headache, numbness, tingling, and seizure. Exam: 14:22 Constitutional: This is a well developed, well nourished patient who is awake, alert, rn and in no acute distress. Head/Face: Normocephalic, atraumatic. Eyes: Periorbital areas with no swelling, redness, or edema. ENT: dry MM Cardiovascular: Regular rate and rhythm. No pulse deficits. Respiratory: No increased work of breathing, no retractions or nasal flaring. Abdomen/GI: soft, mild epigastric tenderness, no rebound Skin: Warm, dry MS/ Extremity: No cyanosis. Bottom of left great toe with open wound, no necrosis, no drainage or purulence. Neuro: Awake and alert, GCS 15 14:30 ECG was reviewed by the Attending Physician. rn Vital Signs: 13:00 BP 187 / 97; Pulse 110; Resp 20; Temp 98.4(O); Pulse Ox 100% on R/A; Weight 81.65 kg; vg1 Height 5 ft. 8 in. (172.72 cm); Pain 5/10; 14:11 BP 187 / 86; Pulse 99; Resp 16; Pulse Ox 96% on R/A; iw 16:18 BP 175 / 74; Pulse 99; Resp 15; Pulse Ox 100% ; jl7 13:00 Body Mass Index 27.37 (81.65 kg, 172.72 cm) vg1 MDM: 12:53 Patient medically screened. rn 18:31 Differential diagnosis: DKA, hyperglycemia, dehydration, gastroparesis, chronic rn pancreatitis. Data reviewed: vital signs, nurses notes, lab test result(s), radiologic studies, CT scan, and as a result, I will admit patient. Consideration of Admission/Observation Escalation of care including admission/observation considered. Pt no longer vomiting, is ambulatory to bathroom without assistance, no acidosis, given 2 L bolus and phenergan, non-toxic, decision made to dc home with trial of phenergan and given return precautions. . Counseling: I had a detailed discussion with the patient and/or guardian regarding: the historical points, exam findings, and any diagnostic results supporting the discharge/admit diagnosis, lab results, the need for outpatient follow up, to return to the emergency department if symptoms worsen or persist or if there are any questions or concerns that arise at home. Response to treatment: the patient's symptoms have markedly improved after treatment, and as a result, I will discharge patient. Special discussion: I discussed with the patient/guardian in detail that at this point there is no indication for admission to the hospital. It is understood, however, that if the symptoms persist or worsen the patient needs to return immediately for re-evaluation. 03/27 13:04 Order name: Blood Culture Adult (2) rn 03/27 13:04 Order name: CBC with Diff; Complete Time: 14:34 rn 03/27 13:04 Order name: CMP; Complete Time: 14:34 rn 03/27 13:04 Order name: Lactate w/ 2H reflex if indic.; Complete Time: 16: rn 03/27 13:04 Order name: Protime (+inr); Complete Time: 14: rn 03/27 13:04 Order name: Ptt, Activated; Complete Time: 14:34 03/27 13:04 Order name: Urine Culture rn 03/27 13:04 Order name: Urine Microscopic Only; Complete Time: 16:19 rn 03/27 13:04 Order name: Wound Culture rn 03/27 13:04 Order name: SARS RAPID; Complete Time: 14:34 rn 03/27 13:04 Order name: Ketone, Serum; Complete Time: 14: rn 03/27 13:17 Order name: Glucose, Ancillary Testing; Complete Time: 13:33 EDIA 03/27 16:20 Order name: Lipase; Complete Time: 17:02 rn 03/27 16:44 Order name: Urine Dipstick-Ancillary; Complete Time: 17:02 EDIA 03/27 13:04 Order name: Chest Single View XRAY; Complete Time: 13:33 rn 03/27 13:04 Order name: EKG; Complete Time: 13:05 rn 03/27 13:04 Order name: Accucheck; Complete Time: 14: rn 03/27 13:04 Order name: Cardiac monitoring; Complete Time: 14: rn 03/27 13:04 Order name: EKG - Nurse/Tech; Complete Time: 13:20 03/27 13:04 Order name: IV Saline Lock - Large Bore; Complete Time: 13:20 03/27 13:04 Order name: Labs collected and sent; Complete Time: 13:20 rn 03/27 13:04 Order name: XRAY Foot LEFT 3 View; Complete Time: 13:33 rn 03/27 18:49 Order name: Glucose, Ancillary Testing; Complete Time: 19:06 EDMS 03/27 13:04 Order name: O2 Per Protocol; Complete Time: 13:20 rn 03/27 13:04 Order name: O2 Sat Monitoring; Complete Time: 13:20 rn 03/27 13:04 Order name: Urine Dipstick-Ancillary (obtain specimen); Complete Time: 15:15 rn 03/27 13:04 Order name: Vital Signs; Complete Time: 13:24 rn EC:30 Rate is 108 beats/min. Rhythm is regular. MD interval is normal. QRS interval is rn normal. QT interval is normal. No Q waves. T waves are Normal. No ST changes noted. Clinical impression: Sinus tachycardia. Interpreted by me. Reviewed by me. Administered Medications: 14:11 Drug: Zofran (Ondansetron) 4 mg Route: IVP; Site: right antecubital; iw 14:11 Drug: NS 0.9% 1000 ml Route: IV; Rate: 1000 ml; Site: right antecubital; iw 16:18 Follow up: Response: No adverse reaction; IV Status: Completed infusion; IV Intake: jl7 1000ml 15:09 Drug: Phenergan (promethazine) 12.5 mg Route: IVP; Site: right antecubital; iw 17:37 Drug: NS 0.9% 1000 ml Route: IV; Rate: 1000 ml; Site: right antecubital; iw 17:37 Drug: Phenergan (promethazine) 12.5 mg Route: IVP; Site: right antecubital; iw 19:15 Drug: Insulin Regular Human 5 units {Co-Signature: jl7 (Keren Clifton RN).} Route: Sub-Q; iw Site: left upper arm; 19:15 Drug: Zofran (Ondansetron) 4 mg Route: IVP; Site: right antecubital; iw Disposition Summary: 03/27/22 18:35 Discharge Ordered Location: Home rn Problem: chronic rn Symptoms: have improved rn Condition: Stable rn Diagnosis - Gastroparesis rn - Other chronic pancreatitis rn - Hyperglycemia, unspecified rn - Dehydration rn Followup: rn - With: - When: As needed - Reason: Recheck today's complaints, Re-evaluation by your physician Discharge Instructions: - Discharge Summary Sheet rn - Dehydration, Adult rn - Hyperglycemia rn - Blood Glucose Monitoring, Adult rn - Gastroparesis rn Forms: - Medication Reconciliation Form rn - Thank You Letter rn - Antibiotic rn manager - Prescription Opioid Use rn Prescriptions: - Clindamycin HCl 300 mg Oral Capsule - take 1 capsule by ORAL route every 6 hours for 10 days; 40 capsule; Refills: 0, rn Product Selection Permitted - promethazine 25 mg Oral Tablet - take 1 tablet by ORAL route every 6 hours As needed; 15 tablet; Refills: 0, rn Product Selection Permitted Signatures: Dispatcher [employer] Lilibeth Chisholm RN RN Yohan Coronel MD MD rn Garcia, Victoria, RN RN vg1 Keren Clifton RN jl7 Keren Clifton RN jl7
[2022-03-27] MEDS ORDERED: INSULIN -REGULAR HUMAN 50 UNIT/0.5 ML ML ONE (18:49)
[2022-03-27 20:16] VITALS: TEMP 98.4
[2022-03-27 20:18] VITALS: BP 175/74; O2SAT 100
== END 2022-03-27 19:24 | disposition home or self-care (01) ==
LOC: ER 12:50
DX: E86.0 Dehydration (principal); E11.43 Type 2 diabetes mellitus with diabetic autonomic (poly)neuropathy; K31.84 Gastroparesis; K86.1 Other chronic pancreatitis; Z88.5 Allergy status to narcotic agent; Z88.8 Allergy status to other drugs, medicaments and biological substances; Z20.822 Contact with and (suspected) exposure to COVID-19
CPT/HCPCS: 87040 ×2; 87088; 87070; 85025; 87086; 36415; 82010; 87205; 85610; 82947 ×2; 83605; 85730; 83690; 80053; 71045; 73630; 87811; J2550 ×2; J1815; J7030 ×2; J2405 ×2; 81003; 81015; 93005

== ENCOUNTER 2022-04-09 09:19 | Day surgery (SDC) | payer BC ==
[2022-04-06 15:20] LABS: Potassium 3.3 mmol/L (3.5-5.1)
[2022-04-09] MEDS ORDERED: NA CHLORIDE 0.9% 1,000 ML ONE ×2 (09:46→12:51)
[2022-04-09] MEDS ORDERED: INSULIN -REGULAR HUMAN 50 UNIT/0.5 ML ML ONE (09:49)
[2022-04-09] MEDS ORDERED: propofoL 200 MG/20 ML VIAL IV ONE ×4 (11:58→12:51)
[2022-04-09] MEDS ORDERED: LIDOCAINE 1% MPF 5 ML VIAL ONE (11:58)
[2022-04-09 13:46] VITALS: BP 147/70; TEMP 98.2; O2SAT 100
--- NOTE | 2022-04-10 17:26 | EKG ---
Test Date: 2022-04-06 Test Time: 13:12:39 Lieutenant Ballistics: JASWANT MEASUREMENT RESULTS: Intervals: Rate: 101 MS: 142 QRSD: 84 QT: 374 QTc: 484 Leblanc: P: 54 MS: 142 QRS: 102 T: 64 INTERPRETIVE STATEMENTS: Sinus tachycardia Rightward axis Borderline ECG Compared to ECG 03/27/2022 13:29:36 Right-axis deviation now present Left posterior fascicular block no longer present Electronically Signed On 04-10-22 17:16:56 WHIP SAWYER by Patrice Orantes
== END 2022-04-09 13:32 | disposition home or self-care (01) ==
LOC: OR 09:19
PROVIDERS: ATTEND Surgery
PROC: 0DB78ZX Excision of Stomach, Pylorus, Via Natural or Artificial Opening Endoscopic, Diagnostic (ICD-10-PCS; 2022-04-09)
PROC: 0DB68ZX Excision of Stomach, Via Natural or Artificial Opening Endoscopic, Diagnostic (ICD-10-PCS; 2022-04-09)
PROC: 0DJD8ZZ Inspection of Lower Intestinal Tract, Via Natural or Artificial Opening Endoscopic (ICD-10-PCS; principal; 2022-04-09 11:00)
PROC: 0DB98ZX Excision of Duodenum, Via Natural or Artificial Opening Endoscopic, Diagnostic (ICD-10-PCS; 2022-04-09 11:00)
DX: K86.1 Other chronic pancreatitis (principal); K29.50 Unspecified chronic gastritis without bleeding; R10.13 Epigastric pain; R11.2 Nausea with vomiting, unspecified; R63.4 Abnormal weight loss; E78.1 Pure hyperglyceridemia; Z12.11 Encounter for screening for malignant neoplasm of colon; Z91.199 Patient's noncompliance with other medical treatment and regimen due to unspecified reason
CPT/HCPCS: 93005; 80048; 36415; 88312; 82947 ×5; 88305; 45378; 43239; J2704 ×4; J2001; J1815; J7030

== ENCOUNTER 2022-04-21 07:54 | Inpatient (IN) | payer BC ==
--- OUTSIDE RECORDS SUMMARY | 2022-04-21 07:57 | XMS REPORT | Continuity of Care Document ---
:1970 Author Organization [facility] t Address [address] [place] [address] Care Team Providers Name Role Phone HOWARD MOURA Attending Clinician Unavailable Brown_Shahla Attending Clinician Unavailable HOWARD MOURA Admitting Clinician Unavailable Dionte Admitting Clinician Unavailable Payers Payer Name Policy Type Policy Number Effective Date Expiration Date [place] [id number] 2021 00:00:00 [place] Problems Condition Condition [...] Practic 00 e Foot Foot Problem Active [facility] callus Callus 5-10 Family 00:00: Practic [...] Mellitus Type 2 Type 2 Problem Active [facility] diabetes Diabetes 5-10 Family mellitus Mellitus [...] DAY olmesartan olmesartan No 1 Q1D olmesartan [facility] 40 40 40 Family mg-hydrochl mg-hydrochl mg-hydroch Practic orothiazide orothiazide lorothiazi e 25 mg 25 mg de 25 mg tablet Take tablet Take tablet 1 tablet 1 tablet Take 1 every day every day tablet by oral by oral every day route for route for by oral 90 days. 90 days. route for 90 days. omeprazole omeprazole No 1capsul Q1D omeprazole [facility] 40 mg 40 mg e(s) 40 mg Family capsule,del capsule,del capsule,de Practic ayed ayed layed e release release release Take 1 Take 1 Take 1 capsule capsule capsule every day every day every day by oral by oral by oral route for route for route for 90 days. 90 days. 90 days. ondansetron ondansetron No ondansetro [facility] 8 mg 8 mg n 8 [...] AT BEDTIME NEEDED amitriptyli amitriptyli No amitriptyl [facility] ne 50 mg ne 50 mg ine 50 mg Fa chacorta tablet TAKE tablet TAKE tablet Practic 1 TABLET BY 1 TABLET BY TAKE 1 e MOUTH AT MOUTH AT TABLET BY BEDTIME BEDTIME MOUTH AT NEEDED FOR NEEDED FOR BEDTIME PAIN 30 PAIN 30 NEEDED FOR DAYS DAYS PAIN 30 DAYS atorvastati atorvastati No 1 Q1D atorvastat [facility] n 80 mg n 80 mg [...] DAY buspirone buspirone No 1 BID buspirone [facility] 10 mg 10 mg 10 mg Family tablet Take tablet Take tablet Practic 1 tablet 1 tablet Take 1 e twice a day twice a day tablet by oral by oral twice a route for route for day by 90 days. 90 days. oral route for 90 days. citalopram citalopram No 1 Q1D citalopram [facility] 40 mg 40 mg 40 mg Family tablet Take tablet Take tablet Practic 1 tablet 1 tablet Take 1 e every day every day tablet by oral by oral every day route for route for by oral 90 days. 90 days. route for 90 days. ezetimibe ezetimibe No 1 Q1D ezetimibe [facility] 10 mg 10 mg 10 mg [...] IN THE MORNING FreeStyle FreeStyle No FreeStyle [facility] Frederick 2 Frederick 2 Frederick 2 Family Sensor kit Sensor kit Sensor kit Practic USE USE USE e DIRECTED DIRECTED DIRECTED DAILY BUT DAILY BUT DAILY BUT CHANGE CHANGE CHANGE EVERY 14 EVERY 14 EVERY 14 DAYS DAYS DAYS Humulin R Humulin R No Humulin R [facility] U-500 U-500 U-500 Family (Conc) (Conc) [...] UNITS levofloxaci levofloxaci No 1 Q1D levofloxac [facility] n 500 mg n 500 mg in 500 mg Fa chacorta tablet Take tablet Take tablet Practic 1 tablet 1 tablet Take 1 e every day every day tablet by oral by oral every day route. route. by oral route. Linzess 290 Linzess 290 No Linzess [facility] mcg capsule mcg capsule 290 mcg Family capsule Practic e metformin metformin No metformin [facility] ER 500 mg ER 500 mg [...] for 90 days. methocarbam methocarbam No methocarba [facility] ol 750 mg ol 750 mg mol 750 mg Family tablet TAKE tablet TAKE tablet Practic 1 TABLET 1 TABLET TAKE 1 e NEEDED FOR NEEDED FOR TABLET MUSCLE MUSCLE NEEDED FOR SPASMS SPASMS MUSCLE ORALLY AT ORALLY AT SPASMS BEDTIME 30 BEDTIME 30 ORALLY AT DAYS DAYS BEDTIME 30 DAYS metoprolol metoprolol No 1 Q1D metoprolol [facility] succinate succinate succinate Family ER 50 [...] Source BP Diastolic 2021-08-18 00:00:00 60 mm[Hg] [facility] Height 2021-08-18 00:00:00 67.5 [in_i] [facility] BMI (Body Mass 2021-08-18 00:00:00 30.9 kg/m2 [facility] [place] [facility] Family Index) Practice BP Systolic 2021-08-18 00:00:00 106 mm[Hg] [facility] Body Weight 2021-08-18 00:00:00 200 [lb_av] [facility] BP Diastolic 2021-07-18 00:00:00 62 mm[Hg] [facility] Height 2021-07-18 00:00:00 67.5 [in_i] [facility] BMI (Body Mass 2021-07-18 00:00:00 30.1 kg/m2 [facility] [place] [facility] Family Index) Practice BP Systolic 2021-07-18 00:00:00 97 mm[Hg] [facility] Body Weight 2021-07-18 00:00:00 195 [lb_av] [facility] BP Diastolic 2021-07-04 00:00:00 69 mm[Hg] [facility] Height 2021-07-04 00:00:00 67.5 [in_i] [facility] BMI (Body Mass 2021-07-04 00:00:00 30.2 kg/m2 [facility] Index) Practice BP Systolic 2021-07-04 00:00:00 116 mm[Hg] [facility] Body Weight 2021-07-04 00:00:00 195.6 [lb_av] [facility] Procedures Procedure Date / Time Performed Performing Clinician [facility] e DOPPLER, DUPLEX 2021-07-04 00:00:00 [facility] Rivera de la cruz ARTERIAL SCAN OF LOWER Practice EXT; (BILAT) Plan of Care Planned Activity Planned Date Details Comments Source Diagnostic Test 2021-08-18 glucose, [place] Fami ly Pending 00:00:00 fingerstick, blood Practice [code = glucose, fingerstick, blood] Encounters Start End Encounter Admission Attending Care Care Encounter Source Date/Time Date/Time Type Type Clinicians Facility Department ID 2022-01-29 2022-01-29 Inpatient U [address] 11:48:00 15:50:00 marcos DUBOIS [facility] 2021-09-05 2021-09-05 Outpatient Daniel_T VFP VFP [id number] [address] [place] [address] 03:12:00 03:12:00 [id number] Family Practic e 2021-08-18 2021-08-18 Outpatient Daniel_T VFP VFP [id number] [address] [place] [address] 10:43:00 10:43:00 [id number] Family Practic e 2021-08-18 2021-08-18 James VFP [place] - [id number] V illage 00:00:00 00:00:00 [facility] Paz Dasilva MD: [id number] [address] Shadow [place] [facility], [address] [address] , Ph. 2021-08-09 2021-08-09 Outpatient Daniel_T VFP VFP [id number] [address] [place] [address] 04:33:00 04:33:00 [id number] Family Practic e 2021-07-26 2021-07-26 Outpatient Daniel_T VFP VFP [id number] [address] [place] [address] 06:51:00 06:51:00 [id number] Family Practic e 2021-07-18 2021-07-18 Outpatient Daniel_T VFP VFP [id number] [address] [place] [address] 11:45:00 11:45:00 [id number] Family Practic e 2021-07-18 2021-07-18 James VFP [place] - [id number] V illage 00:00:00 00:00:00 [facility] Paz Escalante MD: [id number] [address] [place] [address] [place] [address], [place] [address] , Ph. 2021-07-04 2021-07-04 Outpatient Daniel_T VFP VFP [id number] 11-14 [facility] 11:34:00 11:34:00 [id number] Family Practic e 2021-07-04 2021-07-04 Outpatient Daniel_T VFP VFP [id number] 11-14 [facility] 11:34:00 11:34:00 [id number] Family Practic e 2021-07-04 2021-07-04 Outpatient Daniel_T VFP VFP [id number] 11-14 [facility] 11:34:00 11:34:00 [id number] Family Practic e 2021-07-04 2021-07-04 James VFP [place] - [id number] V illage 00:00:00 00:00:00 Nicola [facility] - Practi genny MD: [id number] VM_HOU_Shad e [facility] [address], [place] [address] , Ph. 2021-07-03 2021-07-03 Outpatient Daniel_T VFP VFP [id number] 11-14 [facility] 11:14:00 11:14:00 [id number] Family Practic e Results Test Description Test Time Test Comments Results Result Comments Source Glucose [Mass/volume] in Capillary blood 2021-08-18 08:56:40 Test Item Value Reference Range Interpretation Comme nts Blood Glucose: mg/dl (test code = Blood Glucose: mg/dl) 219 [facility] PracticeGlucose [Mass/volume] in Capillary [id number] 08:56:40 Test Item Value Reference Range Interpretation Comments Blood Glucose: mg/dl (test code = Blood 219 Glucose: mg/dl) [facility] Family PracticeGlucose [Mass/volume] in Capillary [id number] 09:55:04 Test Item Value Reference Range Interpretation Comments Blood Glucose: mg/dl (test code = Blood 251 Glucose: mg/dl) [facility] Family PracticeGlucose [Mass/volume] in Capillary [id number] 09:55:04 Test Item Value Reference Range Interpretation Comments Blood Glucose: mg/dl (test code = Blood 251 Glucose: mg/dl) [facility]/volume] in Capillary [id number] 09:55:04 Test Item Value Reference Range Interpretation Comments Blood Glucose: mg/dl (test code = Blood 251 Glucose: mg/dl) [facility] measurement device [id number] 09:13:39 Test Item Value Reference Range Interpretation Comments Hemoglobin A1C Fingerstick: (test code 9.3 = Hemoglobin A1C Fingerstick:) [facility] A[facility] measurement device [id number] 09:13:39 Test Item Value Reference Range Interpretation Comments Hemoglobin A1C Fingerstick: (test code 9.3 = Hemoglobin A1C Fingerstick:) [facility] [Mass/volume] in Capillary [id number] 09:11:35 Test Item Value Reference Range Interpretation Comments Blood Glucose: mg/dl (test code = Blood 363 Glucose: mg/dl) [facility] [Mass/volume] in Capillary [id number] 09:11:35 Test Item Value Reference Range Interpretation Comments Blood Glucose: mg/dl (test code = Blood 363 Glucose: mg/dl) [facility]
[2022-04-21 09:23] LABS: Urine Blood Trace-intact (Negative); Urine Glucose 2+ (Negative); Urine Protein 2+ (Negative); Urine Specific Gravity 1.015 (1.005-1.030); Urine pH 5.5 (5.0-7.0)
[2022-04-21 09:26] LABS: Absolute Lymphocytes (CBC) 1.3 K/uL (0.7-4.9); Hematocrit 43.8 % (36.0-45.0); Lymphocytes % 21.7 % (15.3-44.8); MCV 83.8 fL (80-100); MPV 7.3 fL (7.6-11.3); RBC Red Blood Cell Count 5.22 M/uL (3.86-4.86)
[2022-04-21] MEDS ORDERED: FAMOTIDINE 20 MG/2 ML VIAL IV ONE (09:30)
[2022-04-21] MEDS ORDERED: HYDROMORPHONE HCL 1 MG/ML INJ ONE ×3 (09:30→15:27)
[2022-04-21] MEDS ORDERED: ONDANSETRON 4 MG/2 ML VIAL ONE ×2 (09:30→10:02)
[2022-04-21] MEDS ORDERED: NA CHLORIDE 0.9% 0 ML ONE (09:30)
--- NOTE | 2022-04-21 09:31 | RAD REPORT ---
EXAM DESCRIPTION: RAD - Chest Single View - 04/21/2022 9:15 am CLINICAL HISTORY: ABDOMINAL DISTENTION COMPARISON: Chest Single View dated 03/27/2022; CHEST SINGLE VIEW dated 03/12/2015; CHEST PA AND LAT 2 VIEW dated 12/06/2014; CHEST SINGLE VIEW dated 09/21/2014 FINDINGS: Lines: None. Lungs: No evidence of edema or pneumonia. Pleural: No significant pleural effusions or pneumothorax. Cardiac: The heart size is within normal limits. Mediastinum: Within normal limits. Bones: No acute fractures. Other: None IMPRESSION: No acute cardiopulmonary disease.
[2022-04-21 09:33] LABS: Protime INR 1.05
[2022-04-21 09:51] LABS: ALT/SGPT 26 U/L (13-56); Albumin 3.6 g/dL (3.4-5.0); Alkaline Phosphatase 140 U/L (45-117); BUN Blood Urea Nitrogen 8 mg/dL (7-18); Bicarbonate 26 mmol/L (21-32); Bilirubin Total 0.4 mg/dL (0.2-1.0); Glomerular Filtration Rate 106 ml/min (=/>90); Lipase 35 U/L (13-75); NT PRO-BNP 48 pg/mL (<125); Protein, Total 8.2 g/dL (6.4-8.2); Sodium Level 128 mmol/L (136-145); Troponin High Sensitivity 7.7 pg/mL (<58.9)
[2022-04-21 09:52] LABS: SARS-CoV-2 Antigen Rapid Res Negative (Negative)
[2022-04-21 09:52] LABS: AST/SGOT 10 U/L (15-37); Bilirubin Direct < 0.1 mg/dL (0-0.2); Potassium 3.8 mmol/L (3.5-5.1)
[2022-04-21 09:53] LABS: Glucose Level 423 mg/dL (74-106)
[2022-04-21] MEDS ORDERED: NA CHLORIDE 0.9% 1,000 ML ONE ×2 (10:02→10:50)
--- NOTE | 2022-04-21 10:18 | RAD REPORT ---
EXAM DESCRIPTION: CTAbdomen Pelvis W Contrast - 04/21/2022 10:08 am CLINICAL HISTORY: ABD PAIN COMPARISON: 12/25/2017 TECHNIQUE: CT of the abdomen and pelvis was performed. All CT scans are performed using dose optimization technique as appropriate and may include automated exposure control or mA/KV adjustment according to patient size. FINDINGS: Lower chest: No acute abnormality. Liver: Hepatic steatosis. Biliary: No biliary ductal dilatation. Stomach: No significant focal abnormality. Duodenum: No significant focal abnormality. Pancreas: Mild edema at the pancreatic head and uncinate. Spleen: No significant abnormality. Adrenal: No suspicious lesions. Kidney/ureter: No hydronephrosis. No renal calculi. Retroperitoneum: No retroperitoneal adenopathy. Vascular: No aneurysm. Bowel: No significant focal abnormality. Peritoneum: No ascites or free air. Small fat containing right inguinal hernia. Bladder: Grossly unremarkable. Reproductive: No adnexal masses. Hysterectomy Bones: No acute fracture. Other: Pain pump in the right abdominal wall. IMPRESSION: Possible mild acute pancreatitis at the pancreatic head and uncinate. No other acute fin dings identified.
--- NOTE | 2022-04-21 10:56 | EDPHYS ---
Physician Documentation [facility] Name: Orquidea Martin Age: 52 yrs Sex: Female : 1970 Arrival Date: 04/21/2022 Time: 07:56 Bed 6 Private MD: Javid Garcia ED Physician Eliud Arnold HPI: 04/21 10:47 This 52 yrs old Female presents to ER via Ambulatory with complaints of toña Abdominal Pain. 10:47 The patient or guardian reports chest pain that is located primarily in the epigastric toña area, anterior chest wall. Onset: yesterday. The patient presents with abdominal pain abdominal distention in the epigastric area, in the upper abdomen. Onset: The symptoms/episode began/occurred 1 day(s) ago. The pain does not radiate. The symptoms do not radiate. Associated signs and symptoms: Pertinent positives: nausea and vomiting. The symptoms are described as constant, crampy. Modifying factors: The symptoms are alleviated by nothing, the symptoms are aggravated by food. The chest pain is described as a pressure. Historical: - Allergies: 08:09 metformin; aa5 08:09 morphine (nausea); aa5 - PMHx: 08:09 Chronic pain; constipation; Diabetes - NIDDM; neuropathy; Chronic Pancreatitis; aa5 - Immunization history:: Adult Immunizations unknown. - Social history:: Smoking status: Patient denies any tobacco usage or history of. - Family history:: not pertinent. ROS: 10:47 Constitutional: Negative for fever, chills, and weight loss, Eyes: Negative for injury, toña pain, redness, and discharge, ENT: Negative for injury, pain, and discharge, Neck: Negative for injury, pain, and swelling, Respiratory: Negative for shortness of breath, cough, wheezing, and pleuritic chest pain, Back: Negative for injury and pain, : Negative for injury, bleeding, discharge, and swelling, MS/Extremity: Negative for injury and deformity, Skin: Negative for injury, rash, and discoloration, Neuro: Negative for headache, weakness, numbness, tingling, and seizure, Psych: Negative for depression, anxiety, suicide ideation, homicidal ideation, and hallucinations, Allergy/Immunology: Negative for hives, rash, and allergies, Endocrine: Negative for neck swelling, polydipsia, polyuria, polyphagia, and marked weight changes, Hematologic/Lymphatic: Negative for swollen nodes, abnormal bleeding, and unusual bruising. 10:47 Cardiovascular: Positive for chest pain, of the chest. 10:47 Abdomen/GI: Positive for abdominal pain, nausea and vomiting. Exam: 10:47 Constitutional: This is a well developed, well nourished patient who is awake, alert, toña and in no acute distress. Head/Face: Normocephalic, atraumatic. Eyes: Pupils equal round and reactive to light, extra-ocular motions intact. Lids and lashes normal. Conjunctiva and sclera are non-icteric and not injected. Cornea within normal limits. Periorbital areas with no swelling, redness, or edema. ENT: Nares patent. No nasal discharge, no septal abnormalities noted. Tympanic membranes are normal and external auditory canals are clear. Oropharynx with no redness, swelling, or masses, exudates, or evidence of obstruction, uvula midline. Mucous membranes moist. Neck: Trachea midline, no thyromegaly or masses palpated, and no cervical lymphadenopathy. Supple, full range of motion without nuchal rigidity, or vertebral point tenderness. No Meningismus. Chest/axilla: Normal chest wall appearance and motion. Nontender with no deformity. No lesions are appreciated. Cardiovascular: Regular rate and rhythm with a normal S1 and S2. No gallops, murmurs, or rubs. Normal PMI, no JVD. No pulse deficits. Respiratory: Lungs have equal breath sounds bilaterally, clear to auscultation and percussion. No rales, rhonchi or wheezes noted. No increased work of breathing, no retractions or nasal flaring. Back: No spinal tenderness. No costovertebral tenderness. Full range of motion. Female : Normal external genitalia. Skin: Warm, dry with normal turgor. Normal color with no rashes, no lesions, and no evidence of cellulitis. MS/ Extremity: Pulses equal, no cyanosis. Neurovascular intact. Full, normal range of motion. Neuro: Awake and alert, GCS 15, oriented to person, place, time, and situation. Cranial nerves II-XII grossly intact. Motor strength 5/5 in all extremities. Sensory grossly intact. Cerebellar exam normal. Normal gait. Psych: Awake, alert, with orientation to person, place and time. Behavior, mood, and affect are within normal limits. 10:47 ECG was reviewed by the Attending Physician. 10:47 Abdomen/GI: Inspection: distension, that is mild, Bowel sounds: normal, Palpation: mild abdominal tenderness, in all quadrants, Liver: no appreciated palpable abnormalities, Hernia: not appreciated. 11:41 ECG was reviewed by the Attending Physician. toña Vital Signs: 08:02 BP 189 / 99; Pulse 103; Resp 16 S; Temp 98.3(O); Pulse Ox 98% on R/A; Weight 81.65 kg aa5 (R); Height 5 ft. 6 in. (167.64 cm) (R); 09:53 BP 187 / 86; Pulse 85; Resp 18; Pulse Ox 98% on R/A; ph 11:30 BP 172 / 89; Pulse 76; Resp 18; Pulse Ox 98% on R/A; ph 12:52 BP 167 / 89; Pulse 78; Resp 18; Temp 98.0; Pulse Ox 99% on R/A; ph 08:02 Body Mass Index 29.05 (81.65 kg, 167.64 cm) aa5 MDM: 08:00 Patient medically screened. [facility] 10:51 Differential diagnosis: abnormal EKG, acute myocardial infarction, acute pericarditis, toña coronary artery disease chest wall pain, gastritis, hiatal hernia, pancreatitis, peptic ulcer disease, stable angina, unstable angina, bowel obstruction, Cholelithiasis, diverticulitis, non-specific abd pain, pancreatitis, Peptic Ulcer Disease, Perf. Duodenal Ulcer, Perf. Gastric Ulcer, urinary tract infection. HEART Score: History: Slightly Suspicious (0), ECG: Normal (0), Age: > 45 and < 65 years (1), Risk Factors: > or = 3 Risk factors for atherosclerotic disease (2), [Hypercholesterolemia] [DM] [+ Family HX] [Obesity] Troponin: < or = 1 x Normal Limit (0). The patient was not given aspirin in the Emergency Department. Not indicated due to patient's past medical history. Data reviewed: vital signs, nurses notes, lab test result(s), EKG, radiologic studies, CT scan, plain films. I considered the following discharge prescriptions or medication management in the emergency department Medications were administered in the Emergency Department. See MAR. Test considered but Not performed: CT: ct chest. 04/21 08:18 Order name: Basic Metabolic Panel; Complete Time: 10:44 [facility] 04/21 08:18 Order name: CBC with Diff; Complete Time: 10:44 [facility] 04/21 08:18 Order name: LFT's; Complete Time: 10:44 [facility] 04/21 08:18 Order name: Magnesium; Complete Time: 10:44 toña 04/21 08:18 Order name: NT PRO-BNP; Complete Time: 10:44 [facility] 04/21 08:18 Order name: PT-INR; Complete Time: 10:44 [facility] 04/21 08:18 Order name: Troponin HS; Complete Time: 10:44 [facility] 04/21 08:18 Order name: XRAY Chest (1 view); Complete Time: 10:44 [facility] 04/21 08:18 Order name: Lipase; Complete Time: 10:44 [facility] 04/21 08:18 Order name: CT Abd/Pelvis - IV Contrast Only [facility] 04/21 08:18 Order name: SARS RAPID; Complete Time: 10:44 [facility] 04/21 09:23 Order name: Urine Dipstick-Ancillary; Complete Time: 10:44 [facility] 04/21 10:19 Order name: CT; Complete Time: 10:44 [facility] 04/21 13:00 Order name: Glucose, Ancillary Testing [facility] 04/21 08:18 Order name: EKG; Complete Time: 08:19 [facility] 04/21 08:18 Order name: Cardiac monitoring; Complete Time: 09:48 [facility] 04/21 08:18 Order name: EKG - Nurse/Tech; Complete Time: 09:48 [facility] 04/21 08:18 Order name: IV Saline Lock; Complete Time: 09:48 [facility] 04/21 08:18 Order name: Labs collected and sent; Complete Time: 09:48 [facility] 04/21 10:45 Order name: EKG; Complete Time: 10:46 [facility] 04/21 08:18 Order name: O2 Per Protocol; Complete Time: 09:48 [facility] 04/21 08:18 Order name: O2 Sat Monitoring; Complete Time: 09:48 [facility] 04/21 08:18 Order name: Urine Dipstick-Ancillary (obtain specimen); Complete Time: 09:48 [facility] 04/21 10:45 Order name: EKG - Nurse/Tech; Complete Time: 11:44 [facility] EC:47 Rate is 86 beats/min. Rhythm is regular. QRS Hay is Normal. ND interval is normal. QRS toña interval is normal. QT interval is normal. No Q waves. T waves are Normal. No ST changes noted. Clinical impression: NSR w/ Non-specific ST/T Changes and No evidence of ischemia. Interpreted by me. Reviewed by me. 11:41 Rate is 86 beats/min. Rhythm is regular. QRS Hay is Normal. ND interval is normal. QRS toña interval is normal. QT interval is normal. No Q waves. T waves are Normal. No ST changes noted. Clinical impression: NSR w/ Non-specific ST/T Changes and No evidence of ischemia. Interpreted by me. Reviewed by me. Administered Medications: 09:35 Drug: NS 0.9% 1000 ml Route: IV; Rate: 1 bolus; Site: right antecubital; ph 11:50 Follow up: Response: No adverse reaction; IV Status: Completed infusion; IV Intake: ph 1000ml 09:35 Drug: Zofran (Ondansetron) 4 mg Route: IVP; Site: right antecubital; ph 11:51 Follow up: Response: No adverse reaction; Nausea unchanged ph 09:37 Drug: Dilaudid (HYDROmorphone) 1 mg Route: IVP; Site: right antecubital; ph 10:00 Follow up: Response: No adverse reaction; Pain is decreased; RASS: Alert and Calm (0) ph 09:38 Drug: Pepcid (famotidine) 20 mg Route: IVP; Site: right antecubital; ph 11:50 Follow up: Response: No adverse reaction ph 10:00 Drug: Zofran (Ondansetron) 4 mg Route: IVP; Site: right antecubital; ph 11:51 Follow up: Response: No adverse reaction; Nausea unchanged ph 11:08 Drug: Dilaudid (HYDROmorphone) 1 mg Route: IVP; Site: right antecubital; ph 11:51 Follow up: Response: No adverse reaction ph 11:12 Drug: Aspirin 81 mg Route: PO; ph 11:52 Follow up: Response: No adverse reaction ph 11:42 Drug: Phenergan (promethazine) 12.5 mg Route: IVP; Site: right antecubital; ph 11:52 Follow up: Response: No adverse reaction ph 11:43 Drug: NS 0.9% 1000 ml Route: IV; Rate: 125 ml/hr; Site: right antecubital; ph 11:50 Follow up: IV Status: Infusion continued upon admission ph 11:43 Drug: NS 0.9% 1000 ml Route: IV; Rate: 1 bolus; Site: right antecubital; ph 12:52 Follow up: Response: No adverse reaction; IV Status: Completed infusion; IV Intake: ph 1000ml Disposition Summary: 04/21/22 10:55 Hospitalization Ordered Hospitalization Status: Inpatient Admission toña Provider: Gali Lynch cha Location: Telemetry/MedSur (Inpatient) toña Condition: Stable toña Problem: new toña Symptoms: have improved toña Bed/Room Type: Standard toña Room Assignment: 208(04/21/22 12:04) dw Diagnosis - Chest pain, unspecified toña - Other chronic pancreatitis toña - Hypo-osmolality and hyponatremia toña - Type 1 diabetes mellitus with hyperglycemia toña Forms: - Medication Reconciliation Form toña - SBAR form toña Signatures: Dispatcher [employer] Ele Torres RN RN dw Anderson, Corey, MD MD cha Calderon, Audri, RN RN aa5 Stacy Ashraf RN RN ph Corrections: (The following items were deleted from the chart) 12:04 10:55 toña dw
--- NOTE | 2022-04-21 10:56 | ER ---
Nurse's Notes [facility] Name: Orquidea Martin Age: 52 yrs Sex: Female : 1970 Arrival Date: 04/21/2022 Time: 07:56 Bed 6 Private MD: Javid Garcia Diagnosis: Chest pain, unspecified;Other chronic pancreatitis;Hypo-osmolality and hyponatremia;Type 1 diabetes mellitus with hyperglycemia Presentation: 04/21 08:02 Chief complaint: Patient states: "I had an endoscopy 2 weeks ago and now I am hurting aa5 worse (abd pain)". Pt reports vomiting x 1 month ago, reports taking hydrocodone last night. 08:02 Coronavirus screen: vomiting. Ebola Screen: Patient denies travel to an Ebola-affected [facility] area in the 21 days before illness onset. Initial Sepsis Screen: Does the patient meet any 2 criteria? HR > 90 bpm. Does the patient have a suspected source of infection? No. Patient's initial sepsis screen is negative. Risk Assessment: Do you want to hurt yourself or someone else? Patient reports no desire to harm self or others. Onset of symptoms was 2022. 08:02 Acuity: FLAQUITO 3 aa5 08:02 Method Of Arrival: Ambulatory aa5 Historical: - Allergies: 08:09 metformin; aa5 08:09 morphine (nausea); aa5 - PMHx: 08:09 Chronic pain; constipation; Diabetes - NIDDM; neuropathy; Chronic Pancreatitis; aa5 - Immunization history:: Adult Immunizations unknown. - Social history:: Smoking status: Patient denies any tobacco usage or history of. - Family history:: not pertinent. Screenin:51 [facility] ED Fall Risk Assessment (Adult) History of falling in the last 3 months, ph including since admission No falls in past 3 months (0 pts) Confusion or Disorientation No (0 pts) Intoxicated or Sedated No (0 pts) Impaired Gait No (0 pts) Mobility Assist Device Used No (0 pt) Altered Elimination No (0 pt) Score/Fall Risk Level 0 - 2 = Low Risk Oriented to surroundings, Maintained a safe environment, Hourly rounding (assess needs \\T\\ fall precautionary measures) done. Abuse screen: Denies threats or abuse. Denies injuries from another. Nutritional screening: No deficits noted. Tuberculosis screening: No symptoms or risk factors identified. Assessment: 09:52 General: Appears in no apparent distress. uncomfortable, Behavior is calm, cooperative, ph appropriate for age, Denies fever, chills. Pain: Complains of pain in left upper quadrant. Neuro: Level of Consciousness is awake, alert, obeys commands, Oriented to person, place, time, situation. Cardiovascular: Capillary refill < 3 seconds in bilateral fingers Patient's skin is warm and dry. Respiratory: Airway is patent Respiratory effort is even, unlabored. GI: Abdomen is non-distended, Reports upper abdominal pain, nausea, vomiting. Derm: Skin is healthy with good turgor, Skin is pink, warm \\T\\ dry. Musculoskeletal: Circulation, motion, and sensation intact. Range of motion: intact in all extremities. Vital Signs: 08:02 BP 189 / 99; Pulse 103; Resp 16 S; Temp 98.3(O); Pulse Ox 98% on R/A; Weight 81.65 kg aa5 (R); Height 5 ft. 6 in. (167.64 cm) (R); 09:53 BP 187 / 86; Pulse 85; Resp 18; Pulse Ox 98% on R/A; ph 11:30 BP 172 / 89; Pulse 76; Resp 18; Pulse Ox 98% on R/A; ph 12:52 BP 167 / 89; Pulse 78; Resp 18; Temp 98.0; Pulse Ox 99% on R/A; ph 08:02 Body Mass Index 29.05 (81.65 kg, 167.64 cm) aa5 ED Course: 07:56 Patient arrived in ED. mr 07:56 Javid Garcia MD is Private Physician. mr 07:59 Eliud Arnold MD is Attending Physician. [facility] 08:02 Arm band placed on. aa5 08:09 Triage completed. aa5 09:11 Stacy Ashraf RN is Primary Nurse. ph 09:15 Initial lab(s) drawn, by me, sent to lab. Inserted saline lock: 22 gauge in right ph antecubital area, using aseptic technique. Blood collected. 09:17 XRAY Chest (1 view) In Process Unspecified. EDMS 09:52 Patient has correct armband on for positive identification. Bed in low position. Call light in reach. Side rails up X 1. Pulse ox on. NIBP on. Door closed. Noise minimized. Lights dimmed. Warm blanket given. Pillow given. 10:54 Gali Lynch MD is Hospitalizing Provider. [facility] 12:53 No provider procedures requiring assistance completed. Patient admitted, IV remains in ph place. Administered Medications: 09:35 Drug: NS 0.9% 1000 ml Route: IV; Rate: 1 bolus; Site: right antecubital; ph 11:50 Follow up: Response: No adverse reaction; IV Status: Completed infusion; IV Intake: ph 1000ml 09:35 Drug: Zofran (Ondansetron) 4 mg Route: IVP; Site: right antecubital; ph 11:51 Follow up: Response: No adverse reaction; Nausea unchanged ph 09:37 Drug: Dilaudid (HYDROmorphone) 1 mg Route: IVP; Site: right antecubital; ph 10:00 Follow up: Response: No adverse reaction; Pain is decreased; RASS: Alert and Calm (0) ph 09:38 Drug: Pepcid (famotidine) 20 mg Route: IVP; Site: right antecubital; ph 11:50 Follow up: Response: No adverse reaction ph 10:00 Drug: Zofran (Ondansetron) 4 mg Route: IVP; Site: right antecubital; ph 11:51 Follow up: Response: No adverse reaction; Nausea unchanged ph 11:08 Drug: Dilaudid (HYDROmorphone) 1 mg Route: IVP; Site: right antecubital; ph 11:51 Follow up: Response: No adverse reaction ph 11:12 Drug: Aspirin 81 mg Route: PO; ph 11:52 Follow up: Response: No adverse reaction ph 11:42 Drug: Phenergan (promethazine) 12.5 mg Route: IVP; Site: right antecubital; ph 11:52 Follow up: Response: No adverse reaction ph 11:43 Drug: NS 0.9% 1000 ml Route: IV; Rate: 125 ml/hr; Site: right antecubital; ph 11:50 Follow up: IV Status: Infusion continued upon admission ph 11:43 Drug: NS 0.9% 1000 ml Route: IV; Rate: 1 bolus; Site: right antecubital; ph 12:52 Follow up: Response: No adverse reaction; IV Status: Completed infusion; IV Intake: ph 1000ml Medication: 09:52 VIS not applicable for this client. ph Intake: 11:50 IV: 1000ml; Total: 1000ml. ph 12:52 IV: 1000ml; Total: 2000ml. ph Outcome: 10:55 Decision to Hospitalize by Provider. toña 12:53 Admitted to Med/surg accompanied by tech, via wheelchair, room 228, with chart. ph 12:53 Condition: stable 12:53 Instructed on the need for admit. 13:29 Patient left the ED. iw Signatures: Dispatcher [employer] EDEliud Scott MD MD cha Rivera, Amita Lilibeth Farfan, RN RN Angelique Arboleda RN RN aa5 Stacy Ashraf RN RN ph
[2022-04-21] MEDS ORDERED: PROMETHAZINE INJ 25 MG/ML AMP ONE (11:45)
--- NOTE | 2022-04-21 11:46 | P.HP ---
Certification for Inpatient Patient admitted to: Inpatient With expected LOS: >2 Midnights Patient will require the following post-hospital care: None Practitioner: I am a practitioner with admitting privileges, knowledge of patient current condition, hospital course, and medical plan of care. Services: Services provided to patient in accordance with Admission requirements found in Title 42 Section 412.3 of the Code of Federal Regulations Patient History Date of Service: 04/21/22 Primary Care Provider: Radha Reason for admission: Chest pain, hyponatremia, pancreatitis History of Present Illness: This is a 52-year-old female with prior past medical history of chronic pain, constipation, diabetes type 2 insulin-dependent, neuropathy, chronic pancreatitis due to hypertriglyceridemia and possible gastroparesis. Patient reports to the emergency room with complaints of abdominal pain with nausea and vomiting and chest pain. Patient was evaluated in the ER in moderate distress. She reported onset of symptoms yesterday. She stated her chest pain started last night or reported pain of 8 out of 10 radiating to her back. Patient reported associated symptoms of nausea vomiting, lightheadedness, and dizziness. Patient stated that she took some hydrocodone to help with the pain and shortness of breath but unable to tolerate the medication due to nausea and vomiting. She reports having endoscopy procedure 2 weeks ago as a follow-up tomorrow. Patient also presents with a right big toe wound with failed therapy. In the ER, her labs are significant for hyponatremia hyperglycemia. CT abdomen demonstrated possible mild acute pancreatitis at the pancreatic head and uncinate. Patient reports episodes of nausa and vomiting for more than a month with poor intake. Patient also present with a Dilaudid pump that is nonfunctioning at the moment. Patient will be admitted under care of Dr. Lynch. Dr. Campos will be consulted for further recommendation and management. Allergies metformin Adverse Reaction (Verified 04/09/22 10:06) Nausea/Vomiting Home Medications: Omeprazole Magnesium [Prilosec Otc] 40 mg PO DAILY 06/05/17 Promethazine Suppos [Phenergan -Suppos*] 25 mg PO Q6HP PRN 06/05/17 Atorvastatin Calcium 80 mg PO BEDTIME 11/20/18 Citalopram Hydrobromide [Citalopram HBr] 40 mg PO DAILY 11/20/18 Dilaudid Pain Pump 11/20/18 Montelukast Sodium [Singulair] 1 tab PO DAILY 11/20/18 Zolpidem Tartrate [Ambien*] 10 mg PO BEDTIME 11/20/18 Olmesartan/Hydrochlorothiazide [Olmesartan-Hctz 40-25 mg Tab] 1 each PO DAILY 12/29/18 Buspirone HCl [Buspar] 10 mg PO DAILY 04/06/22 Ciprofloxacin HCl [Cipro 500 MG Tablet] 500 mg PO BID 04/06/22 Collagenase [Santyl Ointment] 1 bam TP DAILY 04/06/22 Dapagliflozin Propanediol [Farxiga] 10 mg PO DAILY 04/06/22 Insulin Regular, Human [Humulin R U-500 Kwikpen] 50 - 100 unit SQ BID 04/06/22 Metoprolol Succinate [Toprol Xl] 50 mg PO DAILY 04/06/22 Ondansetron [Zofran] 4 mg PO Q6H PRN 04/06/22 Promethazine Tab [Phenergan] 25 mg PO Q6HP PRN 04/06/22 - Past Medical/Surgical History Diabetic: Yes -: Neuropathy -: Ectopic -: Abdominal adhesions -: UTI -: ENDOMETRIOSIS -: pancreatitis -: IDDM -: UTI -: ectopic -: Lasix leelee eyes -: Left shoulder x5 -: Bilateral tubal ligation -: Hysterectomy -: MULTIPLE LAPAROSCOPIC PROCEDURES -: Appendectomy - Social History Smoking Status: Never smoker Alcohol use: No CD- Drugs: No Caffeine use: No Place of Residence: Home Review of Systems 10-point ROS is otherwise unremarkable General: Weakness, Malaise Respiratory: Shortness of Breath, SOB with Excertion Cardiovascular: Chest Pain, Light Headedness Gastrointestinal: Nausea, Vomiting, Abdominal Pain Integumentary: As per HPI Neurological: Weakness Physical Examination - Vital Signs Temperature: 98.2 F Blood Pressure: 188/86 Pulse: 84 Respirations: 25 Pulse Ox (%): 98 - Physical Exam General: Alert, Oriented x3, Moderate distress HEENT: Atraumatic, Normocephalic, PERRLA Neck: Supple, 2+ carotid pulse no bruit Respiratory: Diminished Cardiovascular: No edema, Normal pulses, Regular rate/rhythm Capillary refill: <2 Seconds Gastrointestinal: Tenderness Musculoskeletal: No swelling, Other Integumentary: Diabetic ulcer Neurological: Normal speech, Normal strength at 5/5 x4 extr, Normal tone, S ensation intact Lymphatics: No axilla or inguinal lymphadenopathy - Studies Laboratory Data (last 24 hrs) 04/21/22 09:15: PT 11.6, INR 1.05 04/21/22 09:15: WBC 6.20, Hgb 15.2 H, Hct 43.8, Plt Count 387 04/21/22 09:15: Sodium 128 L, Potassium 3.8, BUN 8, Creatinine 0.64, Glucose 423 H*, Magnesium 2.0, Total Bilirubin 0.4, AST 10 L, ALT 26, Alkaline Phosphatase 140 H, Lipase 35 Assessment and Plan - Plan Assessment Chronic pancreatitis Diabetes type 2 insulin-dependent with hyperglycemia Right toe diabetic foot ulcer Hyponatremia Nausea and vomiting Hypertension Chest pain Plan Previous endoscopy procedure performed by Dr. Campos, will consult for further management Continue IV fluids BMP every 4 Serial troponin, lipase, lipid profile Continue Zofran, Phenergan Keep n.p.o., advance diet as tolerated Tight glucose control, A1c pending Hydralazine as needed for SBP greater than 160 Wound culture pending Continue IV antibiotics DVT PPX- Lovenox Full code Discharge Plan: Home Plan to discharge in: Greater than 2 days - Advance Directives Does patient have a Living Will: No Does patient have a Durable POA for Healthcare: No - Code Status/Comfort Care Code Status Assessed: Yes (Full code) Critical Care: No Time Spent Managing Pts Care (In Minutes): 50
[2022-04-21] MEDS ORDERED: GLUCAGON 1 MG/VIAL IM PRN (11:47)
[2022-04-21] MEDS ORDERED: INSULIN -REGULAR HUMAN 50 UNIT/0.5 ML ML IV ONE (12:01)
[2022-04-21] MEDS ORDERED: D10W 250 ML BAG IV PRN (12:02)
[2022-04-21] MEDS ORDERED: SODIUM CHLORIDE 0.9% 10ML INJ IV PRN (12:29)
[2022-04-21] MEDS ORDERED: MEPERIDINE HCL 25 MG/ML SYR IV PRN (12:47)
[2022-04-21] MEDS: NA CHLORIDE 0.9% 1,000 ML IV SCH (13:34)
[2022-04-21] MEDS: HYDRALAZINE HCL 20 MG/ML VIAL IV PRN (13:37)
[2022-04-21] MEDS: VANCOMYCIN 1.5 GM in NA CHLORIDE 0.9% 500 ML IVPB SCH ×2 (13:45→23:58)
[2022-04-21 14:06] VITALS: O2SAT 99
[2022-04-21 14:49] VITALS: BMI 29.0
[2022-04-21 14:51] LABS: Potassium 3.7 mmol/L (3.5-5.1)
[2022-04-21] MEDS ORDERED: cloNIDine HCL 0.1 MG TAB PO PRN (14:56)
[2022-04-21] MEDS: ENOXAPARIN 40 MG/0.4 ML SQ SCH (15:24)
[2022-04-21] MEDS: HYDROMORPHONE HCL 1 MG/ML INJ IV PRN ×2 (15:25→20:57)
[2022-04-21] MEDS: ONDANSETRON 4 MG/2 ML VIAL IV PRN ×2 (15:41→21:52)
[2022-04-21 16:38] LABS: Specific Gravity > 1.030 (1.005-1.030); Urine Bacteria None Seen /HPF (<20); Urine Bilirubin NEGATIVE (Negative); Urine Blood Negative (Negative); Urine Clarity Clear (Clear); Urine Color Colorless (Yellow); Urine Glucose 4+ (Over) (Negative); Urine Mucus Slight /HPF (None Seen); Urine Protein TRACE (Negative); Urine RBC <5 /HPF (None Seen); Urine Urobilinogen Normal (Normal); Urine pH 5.5 (5.0-7.0)
[2022-04-21 17:44] LABS: HDL Cholesterol 30 mg/dL (40-60); Lipase 313 U/L (13-75)
[2022-04-21 17:45] LABS: Potassium 3.3 mmol/L (3.5-5.1)
[2022-04-21 17:55] LABS: LDL, Direct 50 mg/dL (100-129)
[2022-04-21] MEDS: ATORVASTATIN 40 MG TAB PO SCH ×2 (20:55→21:00)
[2022-04-21 20:56] LABS: Potassium 3.4 mmol/L (3.5-5.1)
[2022-04-21] MEDS: PANTOPRAZOLE 40 MG INJ IVP SCH (20:56)
[2022-04-21] MEDS: ZOLPIDEM TARTRATE 10 MG TABLET PO SCH ×2 (20:56→21:00)
[2022-04-21] MEDS ORDERED: INSULIN -REGULAR HUMAN 50 UNIT/0.5 ML ML SQ SCH (21:00)
[2022-04-21] MEDS: INSULIN -REGULAR HUMAN 50 UNIT/0.5 ML ML SQ SCH (23:51)
[2022-04-21] MEDS: PROMETHAZINE INJ 25 MG/ML AMP IV PRN (23:57)
[2022-04-22] MEDS: HYDRALAZINE HCL 20 MG/ML VIAL IV PRN (00:34)
[2022-04-22] MEDS: HYDROMORPHONE HCL 1 MG/ML INJ IV PRN ×2 (02:18→08:34)
[2022-04-22] MEDS: NA CHLORIDE 0.9% 1,000 ML IV SCH (02:18)
[2022-04-22] MEDS: ONDANSETRON 4 MG/2 ML VIAL IV PRN ×2 (04:02→10:51)
[2022-04-22] MEDS ORDERED: LORazepam 2 MG/ML VIAL IV ONE (04:31)
[2022-04-22] MEDS: INSULIN -REGULAR HUMAN 50 UNIT/0.5 ML ML SQ SCH ×2 (06:00→11:14)
[2022-04-22] MEDS ORDERED: PANTOPRAZOLE 40MG TABLET PO SCH (06:30)
[2022-04-22] MEDS ORDERED: INSULIN GLARGINE 100 UNIT/ML SQ SCH (08:00)
[2022-04-22] MEDS: PROMETHAZINE INJ 25 MG/ML AMP IV PRN (08:34)
[2022-04-22 08:40] VITALS: TEMP 97.6
[2022-04-22] MEDS: PANTOPRAZOLE 40 MG INJ IVP SCH (08:54)
[2022-04-22] MEDS: ENOXAPARIN 40 MG/0.4 ML SQ SCH (08:54)
[2022-04-22] MEDS ORDERED: gemfibroziL 600 MG TAB PO SCH (09:00)
[2022-04-22] MEDS ORDERED: hydroCHLOROthiazide 25 MG TAB PO SCH (09:00)
[2022-04-22] MEDS ORDERED: VALSARTAN 160 MG TAB PO SCH (09:00)
[2022-04-22] MEDS ORDERED: METOPROLOL XL 50 MG TAB PO SCH (09:00)
[2022-04-22] MEDS ORDERED: DOCOSAHEXANOIC AC/EPA 1000 MG PO SCH (09:00)
[2022-04-22 11:10] LABS: Absolute Lymphocytes (CBC) 1.5 K/uL (0.7-4.9); Hematocrit 38.3 % (36.0-45.0); Lymphocytes % 21.6 % (15.3-44.8); MCV 83.9 fL (80-100); MPV 7.3 fL (7.6-11.3); RBC Red Blood Cell Count 4.57 M/uL (3.86-4.86)
[2022-04-22 11:27] LABS: Potassium 3.5 mmol/L (3.5-5.1)
[2022-04-22 11:32] LABS: Lipase 54 U/L (13-75)
[2022-04-22 11:43] LABS: LDL, Direct 64 mg/dL (100-129)
--- NOTE | 2022-04-22 12:01 | CON ---
Date of Consultation: 04/22/2022 Brief History Of Present Illness: The patient is a 52-year-old female with a history of ch ronic pain, constipation, diabetes type 2, neuropathy, chronic pancreatitis due to hypertriglyceridem ia, possible gastroparesis, who presents with recurrent abdominal pain, nausea, vomiting, and chest p ain. She was seen in the ER at that time and noted that her symptoms began the day before. She stat ed that the pain was 8/10, radiating from the back area associated with nausea, vomiting, dizziness, lightheadedness, fatigue, malaise. She took some hydrocodone and she does have a pain pump on top of the hydrocodone and felt some shortness of breath and unable to tolerate the medication due to nause a, vomiting. She did have a colonoscopy 2 weeks ago, which did not get completed due to an incomplet e bowel prep. She was scheduled for a repeat with a 2-day colonoscopy prep. She had a right great t oe wound as well and we have noted that she had some hypertriglyceridemia on admission on this partic ular occasion as well. She has been having poor intake for over a month now and continues to have de creased p.o. intake and she states she has been losing weight. Past Medical History: Neuropathy, ectopic , abdominal adhesions, urinary tract infection, e ndometriosis, acute on chronic pancreatitis secondary to hypertriglyceridemia, gastroparesis, diabete s, urinary tract infections. Has Surgical History: Includes LASIK in bilateral eyes, left shoulder surgery x5, bilateral tubal li gations, hysterectomy, multiple laparoscopic procedures, appendectomy, pain pump implantation, upper endoscopy/EGD, colonoscopy. Social History: She denies smoking, alcohol, or recreational drug use. Review of Systems: Ten-point review of systems other than HPI, she agrees to weakness, malaise, fatigue, shortness of br eath, shortness of breath with exertion, chest pain, dizziness, lightheadedness, nausea, vomiting, ab dominal pain. Physical Examination: Vital Signs: At the time of my examination; her temperature was 97.6, her heart rate was 85, respira tory rate was 18, blood pressure 135/62, SpO2 98% on room air. General: She is awake, alert, oriented. Psychiatric: She is appropriate, conversive. She is in no apparent distress during my examination. She is sitting up on the side of the bed operating her telephone. HEENT: She is otherwise normocephalic. Her sclerae were anicteric. Mucous membranes moist. Oropha rynx clear. Neck: Supple without JVD. Chest: Expansion and excursion. Cardiovascular: Regular rate and rhythm. Pulmonary: Clear to auscultation bilaterally. Abdomen: Soft with mild epigastric and midline tenderness to palpation. No rebound. No guarding. No focal peritonitis. Extremities: No clubbing, cyanosis, edema. She still has a chronic wound of her great toe consisten t with a diabetic ulcer. The ulceration was on the left great toe. Laboratory Data: She had imaging on this particular admission including a CT scan of the abdomen and pelvis, which showed possible mild acute pancreatitis in the pancreatic head and uncinate. No other acute findings noted. She had a chest x-ray performed as well, which was officially read as no acut e cardiopulmonary disease. She had a laboratory exam, which revealed a white blood cell count of 6.8 , hemoglobin 13.3, hematocrit 38.3, platelet count was 346. Her PT 11.6, INR was 1.05. Her chemistr y showed a sodium of 136, potassium 3.5, chloride 102, carbon dioxide 26, BUN 6, creatinine 0.4, gluc ose was 163. Her lipase was 313 on 04/21. Her triglycerides were 1730, cholesterol 273. Assessment And Plan: This is a 52-year-old woman, who comes in with multiple medical problems as ana lilia cribed above and likely acute on chronic pancreatitis. 1.IV fluid hydration. 2.N.p.o. status. 3.Serial abdominal examinations. 4.Continue to control of her hypertriglyceridemia per primary medical team/Dr. Lynch. 5.I recommend MRCP to evaluate the pancreas as well. 6.The patient will continue workup for her possible gastroparesis. Will likely need to follow up fo r her endoscopy as well for completion. Her upper endoscopy showed mild chronic and inactive gastrit is and multiple biopsies. No H pylori was evident. In the duodenum, there were no significant abnor malities. 7.I have explained the risks, benefits, and alternatives of above stated plan. The patient agrees t o procedure as indicated. Thank you for this interesting consult. GABRIEL/CAITY Voice ID: [id number] Report ID: [id number]
[2022-04-22 12:24] VITALS: BP 155/74
--- NOTE | 2022-04-23 18:45 | EKG ---
Test Date: 2022-04-21 Test Time: 09:42:47 Real Estate Investor: ANEESH MEASUREMENT RESULTS: Intervals: Rate: 86 MN: 140 QRSD: 86 QT: 386 QTc: 461 [place]: P: 35 MN: 140 QRS: 27 T: 56 INTERPRETIVE STATEMENTS: Normal sinus rhythm Normal ECG Compared to ECG 04/06/2022 13:12:39 Sinus tachycardia no longer present Right-axis deviation no longer present Electronically Signed On 04-23-22 18:42:01 OPERATOR GROUND BASED [employer] DEFENCE by Patrice Orantes
== END 2022-04-22 11:56 | disposition left against medical advice (07) | DRG 640 ==
LOC: ER 07:54 → ERHOLD 11:51 → 2ND 12:40
PROVIDERS: ADMIT Hospitalist; ATTEND Hospitalist
DX: E87.1 Hypo-osmolality and hyponatremia (principal); K85.90 Acute pancreatitis without necrosis or infection, unspecified; K86.1 Other chronic pancreatitis; E11.65 Type 2 diabetes mellitus with hyperglycemia; E11.40 Type 2 diabetes mellitus with diabetic neuropathy, unspecified; E11.621 Type 2 diabetes mellitus with foot ulcer; L97.519 Non-pressure chronic ulcer of other part of right foot with unspecified severity; E78.1 Pure hyperglyceridemia; I10 Essential (primary) hypertension; G89.29 Other chronic pain; Z79.4 Long term (current) use of insulin; Z88.8 Allergy status to other drugs, medicaments and biological substances; Z88.5 Allergy status to narcotic agent; Z53.29 Procedure and treatment not carried out because of patient's decision for other reasons; Z98.51 Tubal ligation status; Z90.49 Acquired absence of other specified parts of digestive tract; Z90.710 Acquired absence of both cervix and uterus; Z79.899 Other long term (current) drug therapy; Z20.822 Contact with and (suspected) exposure to COVID-19
CPT/HCPCS: 36415; 71045; 74177; 80048; 80061; 80076; 80202; 81001; 81003; 82947; 83036; 83690; 83735; 83880; 84478; 84484; 85025; 85610; 87070; 87077; 87186; 87205; 87811; 93005; 96361; 96374; 96375; 99285; C9113; J0360; J1170; J1650; J1815; J2175; J2405; J2550; J3370; J7030; J7040; Q9967

== ENCOUNTER 2023-02-07 08:05 | Emergency (ER) | payer BC ==
[2023-02-07] MEDS ORDERED: MORPHINE 4 MG/ML SYR ONE (08:58)
[2023-02-07] MEDS ORDERED: DIPHENHYDRAMINE 50 MG/ML VIAL ONE (08:58)
[2023-02-07] MEDS ORDERED: NA CHLORIDE 0.9% 1,000 ML ONE (08:59)
[2023-02-07] MEDS ORDERED: HALOPERIDOL LACT 5 MG/ML INJ ONE (08:59)
--- NOTE | 2023-02-07 10:15 | RAD REPORT ---
EXAM DESCRIPTION: RADChest Single View02/07/2023 9:54 am CLINICAL HISTORY: CHEST PAIN COMPARISON: Chest Single View dated 04/21/2022; Chest Single View dated 03/27/2022; CHEST SINGLE VIEW dated 03/12/2015; CHEST PA AND LAT 2 VIEW dated 12/06/2014 TECHNIQUE: Portable AP view of the chest. FINDINGS: The lungs are clear. Streaky right basilar atelectasis. No pneumothorax or effusion. The c ardiomediastinal contours are unremarkable. Left humeral head deformity, may relate to advanced dege nerative changes or sequelae of healed fracture. IMPRESSION: No acute cardiopulmonary process.
--- NOTE | 2023-02-07 10:24 | EDPHYS ---
Physician Documentation [facility] Name: Orquidea Martin Age: 52 yrs Sex: Female : 1970 Arrival Date: 02/07/2023 Time: 08:05 Bed 16 Private MD: ED Physician Hiro Wahley HPI: 02/07 08:35 This 52 yrs old Female presents to ER via Ambulatory with complaints of ec2 Abdominal Pain. 08:35 Patient with history of chronic pancreatitis along with neuropathy arrives today due to ec2 concern for diffuse body pain. States that she is having abdominal pain which is chronic for her, states that she has a indwelling pain pump that infuses morphine and Dilaudid and bupivacaine. States that she is having some neuropathic issues with back pain, bilateral hip pain and leg pain. Patient reports no falls or injuries or trauma. Patient reports some diffuse chest pain as well. Denies any exertional component to this. Reports poor p.o. intake. States symptoms have been worse for the past 4 days. States that she is scheduled to have an outpatient MRI.. 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 - Social history:: Smoking status: Patient reports the use of cigarette tobacco products, smokes one-half pack cigarettes per day. ROS: 08:35 Constitutional: as per hpi ec2 Exam: 08:35 Constitutional: GEN: NAD Head: atraumatic Eyes: EOMI Ears: External ears are ec2 normal. CV: Tachycardia LUNGS: no respiratory distress ABD: non-distended, soft, not guarding, not rigid, pain pump present in the right upper abdomen. SKIN: no evidence of rashes MSK: no evidence of trauma NEURO: moves all extremities equally Vital Signs: 08:07 BP 177 / 122; Pulse 121; Resp 24; Temp 98.5(O); Pulse Ox 99% on R/A; Weight 78.02 kg; db Height 5 ft. 8 in. ; Pain 10/10; 09:00 BP 198 / 71; Pulse 105; Resp 18; Pulse Ox 96% on R/A; db 10:00 BP 196 / 96; Pulse 112; Resp 18; Pulse Ox 96% on R/A; db 08:07 Body Mass Index 26.15 (78.02 kg, 172.72 cm) db 08:07 Pain Scale: Adult db MDM: 08:17 Patient medically screened. ec2 08:35 Data reviewed: vital signs. ED course: Patient arrives today due to concern for diffuse ec2 pain. Examination remarkable for well-appearing nontoxic individual is otherwise in no acute distress who is noted to be tachycardic and hypertensive. Will obtain lab work, EKG, cardiac workup, abdominal profile. Currently considered process such as pancreatitis, ACS, low suspicion for PE or dissection. Will treat her symptoms with IV morphine, Benadryl, Haldol and crystalloid. . 09:08 ED course: EKG independently reviewed and interpreted by me, shows sinus tachycardia, ec2 rate 112, no acute ST segment elevations, nonconcerning intervals.. 10:18 ED course: Chest x-ray with no acute intrathoracic process.. ec2 10:23 ED course: Patient does have an outpatient MRI scheduled, states that she still has ec2 some discomfort, however would like to her tenderness. I instructed her that we do not have any results back and we did not obtain the imaging they would initially plan to and she expressed understanding. Patient was informed discharge. Return precautions given. 02/07 08:29 Order name: CBC with Diff ec2 02/07 08:29 Order name: Troponin HS ec2 02/07 08:29 Order name: Lipase ec2 02/07 08:29 Order name: CMP ec2 02/07 08:29 Order name: XRAY Chest (1 view); Complete Time: 10:18 ec2 02/07 08:29 Order name: EKG; Complete Time: 08:30 ec2 02/07 08:29 Order name: Cardiac monitoring; Complete Time: 09:03 ec2 02/07 08:29 Order name: EKG - Nurse/Tech; Complete Time: 09:03 ec2 02/07 08:29 Order name: IV Saline Lock; Complete Time: 09:03 ec2 02/07 08:29 Order name: Labs collected and sent; Complete Time: 09:03 ec2 02/07 08:29 Order name: O2 Per Protocol; Complete Time: 09:03 ec2 02/07 08:29 Order name: O2 Sat Monitoring; Complete Time: 09:03 ec2 02/07 08:54 Order name: Labs - recollect needed: Lt green and lavender; Complete Time: 09:18 bc6 02/07 09:44 Order name: Labs - recollect needed: Lt green and lavender. inside lab will come draw.; [facility] Complete Time: 10:32 Administered Medications: 08:55 Drug: NS 0.9% IV 1000 ml IV at 1 bolus Per protocol; 1000 mL bolus Route: IV; Rate: 1 db bolus; Site: right antecubital; 10:32 Follow up: IV Status: Completed infusion; IV Intake: 1000ml db 08:57 Drug: diphenhydrAMINE IVP 50 mg IVP once Route: IVP; Site: right antecubital; db 10:33 Follow up: Response: No adverse reaction db 08:59 Drug: morphine IVP or IV 4 mg IVP once over 4 mins Route: IVP; Infused Over: 4 mins; db Site: right antecubital; 10:32 Follow up: Response: No adverse reaction db 08:59 Drug: Haloperidol IVP 5 mg IVP once Route: IVP; Site: right antecubital; db 10:32 Follow up: Response: No adverse reaction db Disposition Summary: 02/07/23 10:23 Discharge Ordered Notes: Location: Home ec2 Condition: Stable ec2 Diagnosis - Abdominal pain, Generalized ec2 Followup: ec2 - With: Private Physician - When: - Reason: Re-evaluation by your physician Discharge Instructions: - Discharge Summary Sheet ec2 - Abdominal Pain, Adult ec2 Forms: - Medication Reconciliation Form ec2 - Thank You Letter ec2 - Antibiotic Education ec2 - Prescription Opioid Use ec2 - Patient Portal Instructions ec2 - Leadership Thank You Letter ec2 Signatures: Dispatcher [employer] Pooja Crawford RN RN Sammie Fay [facility] Hiro Whaley MD MD ec2 Corrections: (The following items were deleted from the chart) 08:44 08:30 Abdomen Pelvis W Con+CT.RAD.BRZ ordered. EDMS SCHNEIDER
--- NOTE | 2023-02-07 10:24 | ER ---
Nurse's Notes [facility] Name: Orquidea Martin Age: 52 yrs Sex: Female : 1970 Arrival Date: 02/07/2023 Time: 08:05 Bed 16 Private MD: Diagnosis: Abdominal pain, Generalized Presentation: 02/07 08:07 Chief complaint: Patient states: PATIENT STATES HAS PAIN X 3 WEEKS GRADUALLY GETTING db WORSE. PLANNED FOR MRI TODAY AT 0930. HAS PAIN PUMP WITH MORPHINE, BUPIVACAINE AND DILAUDID. TOOK ALIEVE AROUND 0500 DID NOT HELP. HX OF PERIPHERAL NEUROPATHY. STATES PAIN IS RADIATING FROM CHEST DOWN THROUGH LEGS AND ARMS. Coronavirus screen: Vaccine status: Patient reports receiving the 2nd dose of the covid vaccine. Client denies travel out of the [place] in the last 14 days. At this time, the client does not indicate any symptoms associated with coronavirus-19. Ebola Screen: Patient negative for fever greater than or equal to 101.5 degrees Fahrenheit, and additional compatible Ebola Virus Disease symptoms Patient denies exposure to infectious person. Patient denies travel to an Ebola-affected area in the 21 days before illness onset. No symptoms or risks identified at this time. Initial Sepsis Screen: Does the patient meet any 2 criteria? HR > 90 bpm. Does the patient have a suspected source of infection? No. Patient's initial sepsis screen is negative. Risk Assessment: Do you want to hurt yourself or someone else? Patient reports no desire to harm self or others. Onset of symptoms was February 07, 2023. 08:07 Method Of Arrival: Ambulatory db 08:07 Acuity: FLAQUITO 2 db Triage Assessment: 08:32 General: Appears in no apparent distress. uncomfortable, Behavior is cooperative, db anxious. Pain: Complains of pain in back, chest and abdomen. Neuro: Level of Consciousness is awake, alert, obeys commands, Oriented to person, place, time, situation, Speech is normal. Cardiovascular: Reports chest pain. Respiratory: Airway is patent Respiratory effort is even, unlabored, Respiratory pattern is regular, symmetrical. GI: Abdomen is non-distended. 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 - Social history:: Smoking status: Patient reports the use of cigarette tobacco products, smokes one-half pack cigarettes per day. Screenin:34 [facility] ED Fall Risk Assessment (Adult) History of falling in the last 3 months, db including since admission No falls in past 3 months (0 pts) Confusion or Disorientation No (0 pts) Intoxicated or Sedated No (0 pts) Impaired Gait No (0 pts) Mobility Assist Device Used No (0 pt) Altered Elimination No (0 pt) Score/Fall Risk Level 0 - 2 = Low Risk Oriented to surroundings, Educated pt \T\ family on fall prevention, incl call for assistance when getting out of bed. Abuse screen: Denies threats or abuse. Denies injuries from another. Nutritional screening: On. Tuberculosis screening: No symptoms or risk factors identified. Assessment: 08:34 Reassessment: Patient appears in no apparent distress at this time. Patient and/or db family updated on plan of care and expected duration. Pain level reassessed. Patient is alert, oriented x 3, equal unlabored respirations, skin warm/dry/pink. General: Appears in no apparent distress. comfortable, Behavior is calm, cooperative. Pain: Complains of pain in abdomen and chest and back. Neuro: Level of Consciousness is awake, alert, obeys commands, Oriented to person, place, time, situation. 09:00 GI: Bowel sounds present X 4 quads. Abd is soft. db 09:30 Reassessment: Patient appears in no apparent distress at this time. Patient and/or db family updated on plan of care and expected duration. Pain level reassessed. Patient is alert, oriented x 3, equal unlabored respirations, skin warm/dry/pink. RESTING QUIETLY. 10:00 Reassessment: Patient appears in no apparent distress at this time. Patient and/or db family updated on plan of care and expected duration. Pain level reassessed. Patient is alert, oriented x 3, equal unlabored respirations, skin warm/dry/pink. 10:12 Reassessment: LAB IS AT PATIENT BEDSIDE COLLECTING LABS. db 10:28 Reassessment: PATIENT REQUESTS TO LEAVE. STATES WANTS TO GO HAVE HER MRI. NOTIFIED DR. ivette WHALEY. PT TO BE DISCHARGED. Vital Signs: 08:07 BP 177 / 122; Pulse 121; Resp 24; Temp 98.5(O); Pulse Ox 99% on R/A; Weight 78.02 kg; db Height 5 ft. 8 in. ; Pain 10/10; 09:00 BP 198 / 71; Pulse 105; Resp 18; Pulse Ox 96% on R/A; db 10:00 BP 196 / 96; Pulse 112; Resp 18; Pulse Ox 96% on R/A; db 08:07 Body Mass Index 26.15 (78.02 kg, 172.72 cm) db 08:07 Pain Scale: Adult db ED Course: 08:07 Patient arrived in ED. mg5 08:17 iHro Whaley MD is Attending Physician. ec2 08:21 Pooja Rene, JUNG is Primary Nurse. db 08:32 Triage completed. db 08:32 Arm band placed on Patient placed in an exam room. db 08:34 Patient has correct armband on for positive identification. Bed in low position. Call db light in reach. Side rails up X 1. Client placed on continuous cardiac and pulse oximetry monitoring. NIBP monitoring applied. 08:51 Inserted saline lock: 22 gauge in right forearm, using aseptic technique. Blood ds4 collected. 09:56 XRAY Chest (1 view) In Process Unspecified. EDMS 10:00 Provided Education on: DISCHARGE. db 10:30 No provider procedures requiring assistance completed. IV discontinued, intact, db bleeding controlled, No redness/swelling at site. Administered Medications: 08:55 Drug: NS 0.9% IV 1000 ml IV at 1 bolus Per protocol; 1000 mL bolus Route: IV; Rate: 1 db bolus; Site: right antecubital; 10:32 Follow up: IV Status: Completed infusion; IV Intake: 1000ml db 08:57 Drug: diphenhydrAMINE IVP 50 mg IVP once Route: IVP; Site: right antecubital; db 10:33 Follow up: Response: No adverse reaction db 08:59 Drug: morphine IVP or IV 4 mg IVP once over 4 mins Route: IVP; Infused Over: 4 mins; db Site: right antecubital; 10:32 Follow up: Response: No adverse reaction db 08:59 Drug: Haloperidol IVP 5 mg IVP once Route: IVP; Site: right antecubital; db 10:32 Follow up: Response: No adverse reaction db Medication: 08:34 VIS not applicable for this client. db Intake: 10:32 IV: 1000ml; Total: 1000ml. db Outcome: 10:23 Discharge ordered by . ec2 10:30 Discharged to home ambulatory, with family, db 10:30 Condition: stable 10:30 Discharge instructions given to patient, Instructed on discharge instructions, follow up and referral plans. 10:33 Patient left the ED. db Signatures: Dispatcher [employer] Chan Gordon ds4 Pooja Rene RN RN Flora Palacio mg5 Hiro Whaley MD MD ec2
[2023-02-07 10:39] VITALS: TEMP 98.5; O2SAT 96
[2023-02-07 10:42] VITALS: BP 196/96
[2023-02-07 10:50] LABS: Absolute Lymphocytes (CBC) 1.5 K/uL (0.7-4.9); Hematocrit 38.7 % (36.0-45.0); Lymphocytes % 14.4 % (15.3-44.8); MCV 85.7 fL (80-100); MPV 8.6 fL (7.6-11.3); RBC Red Blood Cell Count 4.52 M/uL (3.86-4.86)
[2023-02-07 10:52] LABS: Platelets 339 thou/uL (152-406)
[2023-02-07 11:11] LABS: ALT/SGPT 21 U/L (13-56); Albumin 3.4 g/dL (3.4-5.0); Alkaline Phosphatase 125 U/L (45-117); BUN Blood Urea Nitrogen 17 mg/dL (7-18); Bicarbonate 20 mEq/L (21-32); Bilirubin Total 0.6 mg/dL (0.2-1.0); Glomerular Filtration Rate 85 ml/min (=/>90); Glucose Level 353 mg/dL (74-106); Protein, Total 8.9 g/dL (6.4-8.2); Sodium Level 134 mEq/L (136-145); Troponin High Sensitivity 6.7 pg/mL (<58.9)
[2023-02-07 11:40] LABS: Platelet Estimate ADEQ; White Blood Cell Scan OK (OK)
[2023-02-07 11:41] LABS: Blood Morphology Comment NOT SEEN (NOT SEEN)
--- NOTE | 2023-02-11 12:36 | EKG ---
Test Date: 2023-02-07 Test Time: 08:53:05 Manufacturing Mechanic: MALINA MEASUREMENT RESULTS: Intervals: Rate: 112 UT: 144 QRSD: 82 QT: 364 QTc: 496 [place]: P: 59 UT: 144 QRS: 106 T: 65 INTERPRETIVE STATEMENTS: Sinus tachycardia Right atrial enlargement Borderline ECG Compared to ECG 04/21/2022 09:42:47 Atrial abnormality now present Sinus rhythm no longer present Electronically Signed On 02-11-23 12:28:20 CYBER FORENSICS ANALYST by Patrice Orantes
== END 2023-02-07 10:33 | disposition home or self-care (01) ==
LOC: ER 08:05
DX: R10.84 Generalized abdominal pain (principal); G89.29 Other chronic pain; E11.9 Type 2 diabetes mellitus without complications; F17.210 Nicotine dependence, cigarettes, uncomplicated; Z88.5 Allergy status to narcotic agent; Z88.8 Allergy status to other drugs, medicaments and biological substances
CPT/HCPCS: 96361; 93005; 85025; 36415; 84484; 83690; 80053; 71045; 96375; 96374; 99284; J1630; J1200; J7030